=== PATIENT | female | born 1965 | race African-American/Black ===

== ENCOUNTER → 2016-07-27 09:55 | Outpatient (CLI) | payer MEDICARE ==
[2015-02-13 06:54] VITALS: BMI 30.2
[~2016-07-27 09:55] MED LIST: ABILIFY15 MG PO; BENZTROPINE ME0.5 MG PO; BUPROPION XL300 MG PO; DEPAKOTE250 MG PO; DESERYL100 MG PO; IBUPROFEN800 MG; INVEGA1.5 MG PO; KLONOPIN1 MG PO; LAMICTAL200 MG PO; LOTREL 10/20 CA1 CAP PO; NEXIUM40 MG PO; PROZAC20 MG PO; ZYPREXA15 MG PO
== END | disposition home or self-care (01) ==
LOC: D.MRI 09:55
DX: M54.5 Low back pain (principal)

== ENCOUNTER 2016-08-19 11:09 | Emergency (ER) | payer MEDICARE ==
[2015-02-13 06:54] VITALS: BMI 30.2
[2016-08-19 12:16] LABS: BASOPHILS 0.3 % (0.0-2.0); EOSINOPHILS 1.5 % (0-7); HEMATOCRIT 42.2 % (36.0-48.0); IMMATURE GRANULOCYTES 0.3 % (0-5); LYMPHOCYTES 35.6 % (15-50); MCH 29.1 pg (26.0-34.0); MCHC 33.2 g/dL (31.0-37.0); MCV 87.7 fL (80.0-100.0); MEAN PLATELET VOLUME 10.4 fL (7.4-10.4); NEUTROPHILS 54.3 % (40-80); RBC 4.81 10x6/uL (4.00-5.40); RDW 14.7 % (11.5-14.5); WBC 7.3 10x3/uL (4.8-10.8)
[2016-08-19 12:21] LABS: ALBUMIN 3.6 g/dL (3.4-5.0); BILIRUBIN - TOTAL 0.15 mg/dL (0.2-1.3); CALCIUM 9.3 mg/dL (8.5-10.1); CARBON DIOXIDE 33.8 mmol/L (21.0-32.0); CREATININE - SERUM 0.9 mg/dL (0.6-1.3); POTASSIUM - SERUM 3.8 mmol/L (3.5-5.1); PROTEIN - SERUM 7.9 g/dL (6.4-8.2)
[2016-08-19 12:27] LABS: PLATELET COUNT 195 10x3/uL (130-400)
[2016-08-19 14:27] LABS: APPEARANCE CLOUDY (CLEAR); BILIRUBIN NEGATIVE (NEGATIVE); COLOR YELLOW (YELLOW); GLUCOSE NEGATIVE (NEGATIVE); KETONE SMALL mg/dL (NEGATIVE); LEUKOCYTE ESTERASE NEGATIVE (NEGATIVE); NITRITE NEGATIVE (NEGATIVE); PROTEIN NEGATIVE (NEGATIVE); UROBILINOGEN NORMAL (NORMAL)
== END 2016-08-19 15:30 | disposition home or self-care (01) ==
LOC: D.ER 11:09
PROVIDERS: Emergency Medicine
DX: R10.9 Unspecified abdominal pain (principal); F31.9 Bipolar disorder, unspecified; I10 Essential (primary) hypertension; F20.9 Schizophrenia, unspecified; F17.200 Nicotine dependence, unspecified, uncomplicated

== ENCOUNTER → 2017-03-15 16:36 | Outpatient (CLI) | payer MEDICARE ==
[2015-02-13 06:54] VITALS: BMI 30.2
== END | disposition home or self-care (01) ==
LOC: D.MAMMO 14:30
DX: Z12.31 Encounter for screening mammogram for malignant neoplasm of breast (principal)

== ENCOUNTER → 2017-04-06 14:21 | Outpatient (CLI) | payer MEDICARE ==
[2015-02-13 06:54] VITALS: BMI 30.2
[~2017-04-06 14:21] MED LIST changes: +HALDOL5 MG PO; +HYDROCODONE-APA1 TAB PO; +NEURONTIN 400400 MG PO; +ULTRAM50 MG PO; +ZYPREXA20 MG PO
== END | disposition home or self-care (01) ==
LOC: D.MAMMO 10:00
DX: R92.8 Other abnormal and inconclusive findings on diagnostic imaging of breast (principal)

== ENCOUNTER 2017-04-18 11:28 | Day surgery (SDC) | payer MEDICARE ==
[~2017-04-18 11:28] MED LIST changes: -HALDOL5 MG PO; -HYDROCODONE-APA1 TAB PO; -NEURONTIN 400400 MG PO; -ULTRAM50 MG PO; -ZYPREXA20 MG PO
[2017-04-18] MEDS ORDERED: ZYPREXA20 MG PO (12:14)
[2017-04-18] MEDS ORDERED: HALDOL5 MG PO (12:15)
[2017-04-18] MEDS ORDERED: NEURONTIN 400400 MG PO (12:16)
[2017-04-18] MEDS ORDERED: ULTRAM50 MG PO (12:16)
[2017-04-18] MEDS ORDERED: KLONOPIN1 MG PO (12:18)
[2017-04-18 12:25] VITALS: BP 139/96; BMI 41.2
[2017-04-18 13:27] LABS: HEMATOCRIT 41.3 % (36.0-48.0); HEMOGLOBIN 13.6 g/dL (12-16); MCH 28.8 pg (26.0-34.0); MCHC 32.9 g/dL (31.0-37.0); MCV 87.3 fL (80.0-100.0); MEAN PLATELET VOLUME 10.5 fL (7.4-10.4); RBC 4.73 10x6/uL (4.00-5.40); RDW 14.9 % (11.5-14.5); WBC 6.7 10x3/uL (4.8-10.8)
--- NOTE | 2017-04-18 13:55 | NUR ---
PT REC'D TO ROOM VIA STRETCHER. AWAKE, DROWSY.
--- NOTE | 2017-04-18 14:35 | NUR ---
FULL LIQ DIET PROVIDED AND TOLERATED.
--- NOTE | 2017-04-18 15:07 | NUR ---
IV D/C'D CATH INTACT. PT UP TO BR TO VOID. PASSING FLATUS.
--- NOTE | 2017-04-18 15:19 | NUR ---
D/C INSTRUCTIONS EXPLAINED TO PT. VOICED UNDERSTANDING. COPIES OF ALL GIVEN. D/C'D HOME VIA W/C TO PRIVATE CAR.
--- NOTE | 2017-05-05 07:24 | OP ---
PATIENT NAME: AISLINN MATHUR MEDICAL RECORD: [id number] :65 LOCATION:DShirazOPS ADMISSION DATE: SURGEON: ENRIQUETA DONATO DO DATE OF OPERATION: 04/18/2017 INDICATIONS FOR PROCEDURE: Colorectal cancer screening. SCOPE: Olympus video pediatric colonoscope. MEDICATIONS: Propofol 410 mg IV per anesthesia. WITHDRAWAL TIME: 15 minutes. ESTIMATED BLOOD LOSS: Minimal. COMPLICATIONS: None. FINDINGS: Informed consent was given. The patient was made comfortable with the above medication. After reaching an adequate level of sedation by slow IV push, the patient was placed on her left side. A digital rectal examination was performed and was normal. The endoscope was then advanced under direct visualization through the rectum to the terminal ileum. The scope was slowly withdrawn and mucosa was carefully examined. The prep quality was good. In the descending colon, there was a single benign appearing sessile polyp measuring approximately 4-5 mm in diameter, which was removed using hot forceps in 1 piece and completely retrieved. In the sigmoid colon, there were two benign appearing sessile polyps ranging approximately 4-5 mm in diameter in size which were removed using hot forceps in 1 piece and completely retrieved. There were other hyperplastic-appearing polyps, which were ablated. Retroflexion was performed in the rectum with a normal appearing rectal wall. The endoscope was unretroflexed and withdrawn from the patient. The patient tolerated the procedure well and there were no complications. IMPRESSION: Three polyps as described above removed using hot forceps. PLAN AND RECOMMENDATIONS: 1. Discharge home when recovery parameters are met. 2. Follow up biopsy specimen results. 3. Continue current diet. 4. Continue current medications. 5. Recall colonoscopy in 5 years. TRANSINT:[id number] Voice Confirmation ID: [id number] DOCUMENT ID: [id number] ENRIQUETA DONATO DO at 0724 CC: [id number] DICTATION DATE: 04/18/17 1344 ENTERER: 04/18/17 1436 [facility] 04/18/[address] [address]
== END 2017-04-18 15:24 | disposition home or self-care (01) ==
LOC: D.OPS 11:28
PROVIDERS: Anesthesiology
DX: Z12.11 Encounter for screening for malignant neoplasm of colon (principal); K63.5 Polyp of colon; F17.200 Nicotine dependence, unspecified, uncomplicated; I10 Essential (primary) hypertension; J44.9 Chronic obstructive pulmonary disease, unspecified; K21.9 Gastro-esophageal reflux disease without esophagitis; E66.01 Morbid (severe) obesity due to excess calories; Z68.41 Body mass index [BMI] 40.0-44.9, adult

== ENCOUNTER 2017-04-29 10:00 | Outpatient (CLI) | payer MEDICARE ==
[~2017-04-29 10:00] MED LIST changes: +HALDOL5 MG PO; +NEURONTIN 400400 MG PO; +ULTRAM50 MG PO; +ZYPREXA20 MG PO
== END 2017-04-29 23:59 | disposition home or self-care (01) ==
LOC: D.MAMMO 10:00
DX: R92.8 Other abnormal and inconclusive findings on diagnostic imaging of breast (principal)

== ENCOUNTER 2017-06-07 06:08 | Day surgery (SDC) | payer MEDICARE ==
[~2017-06-07] VITALS: Ht 157.5 cm; Wt 101.4 kg
[2017-06-07 07:49] VITALS: BP 155/103; Ht 157.5 cm; Wt 101.4 kg
--- NOTE | 2017-06-07 07:53 | NUR ---
0750 TO CHRIS FOR NEEDLE LOCALIZATION BY ALMA ROSA.
[2017-06-07] MEDS ORDERED: HYDROCODONE-APA1 TAB PO (11:38)
--- NOTE | 2017-06-07 11:57 | NUR ---
ANESTHESIA CONTACTED ABOUT HTN AND ORDRED HYDRALIZINE IN RR. PRE OP BP 180/106
--- NOTE | 2017-06-07 12:20 | NUR ---
PT REC'D TO ROOM VIA STRETCHER. DROWSY, BUT RESPONDS TO VERBAL STIMULI. BP NOTED. PT RECEIVED 20 MG HYDRALAZINE IN PACU. WILL MONITOR.
--- NOTE | 2017-06-07 12:30 | NUR ---
PT ASSISTED UP TO BR. SAT ON COMMODE FOR 15 MINUTES BUT ULTIMATELY WAS ABLE TO VOID. ASSISTED BACK TO BED. FULL LIQ DIET PROVIDED.
--- NOTE | 2017-06-07 13:00 | NUR ---
TOLERATED FULL LIQ DIET. 02 SAT 93. 2L O2 PLACED. WILL MONITOR.
--- NOTE | 2017-06-07 13:15 | NUR ---
PT MORE AWAKE.
--- NOTE | 2017-06-07 13:25 | NUR ---
O2 REMOVED. PT 97% ON RA.
--- NOTE | 2017-06-07 13:45 | NUR ---
IV D/C'D CATH INTACT. PT BACK UP TO BR, VOIDED.
--- NOTE | 2017-06-07 14:00 | NUR ---
D/C INSTRUCTIONS EXPLAINED TO PT AND FAMILY. VOICED UNDERSTANDING. COPIES OF ALL GIVEN, WELL WRITTEN RX FOR [place]CO [address] BOX. D/C'D HOME VIA W/C TO PRIVATE CAR.
--- NOTE | 2017-06-07 15:39 | OP ---
PATIENT NAME: AISLINN MATHUR MEDICAL RECORD: [id number] :65 LOCATION:D.OPS ADMISSION DATE: SURGEON: PRABHJOT BOX MD DATE OF OPERATION: 06/07/2017 PREOPERATIVE DIAGNOSES: 1. Atypical lobular hyperplasia of the left breast. 2. Hypertension. 3. COPD. POSTOPERATIVE DIAGNOSES: 1. Atypical lobular hyperplasia of the left breast. 2. Hypertension. 3. COPD. PROCEDURE: Needle loc, left breast lumpectomy. SURGEON: Prabhjot Box MD REPORT OF PROCEDURE: Preoperatively, the patient had needle localization performed. The patient's left breast and indwelling wire were all prepped and draped in sterile fashion. A skin incision was made on the superolateral aspect of the left breast. Electrocautery was used to dissect through the subcutaneous tissues into the breast cavity. Once in the breast tissue, then we performed a cylindrical dissection of the tissue around the wire until we completely excised everything including the tip of the wire. The specimen was marked appropriately and sent off to radiology. The report was that the clip was in position and the wire was intact. The area was inspected thoroughly and any bleeding that was found was treated with electrocautery. We then reapproximated the subcutaneous tissues with interrupted 3-0 Vicryls and the skin was closed with running subcutaneous 5-0 Monocryl. A 10 mL of 0.25% Marcaine with epinephrine was infused into the surrounding tissues and the wounds were dressed appropriately. COMPLICATIONS: None. CONDITION: Stable. ANESTHESIA: General endotracheal and local. BLOOD LOSS: Minimal. TRANSINT:[id number] Voice Confirmation ID: [id number] DOCUMENT ID: [id number] PRABHJOT BOX MD at 1539 CC: TIFFANI ABDULLAHI MD [id number] DICTATION DATE: 06/07/17 1142 BEER COOLER: 06/07/[address] [facility] 06/07/[address] [address]
== END 2017-06-07 14:00 | disposition home or self-care (01) ==
LOC: D.OPS 06:08 → D.PAN 07:30 → D.OPS 07:30 → D.PAN 08:00 → D.MAMMO 08:00 → D.OPS 14:00
DX: N62 Hypertrophy of breast (principal); I10 Essential (primary) hypertension; J44.9 Chronic obstructive pulmonary disease, unspecified; F17.200 Nicotine dependence, unspecified, uncomplicated; K21.9 Gastro-esophageal reflux disease without esophagitis; Z01.812 Encounter for preprocedural laboratory examination

== ENCOUNTER 2017-10-07 13:46 | Inpatient (IN) | payer MEDICARE ==
[~2017-10-07] VITALS: Ht 157.5 cm; Wt 100.0 kg
--- NOTE | ~2017-10-07 | CN ---
PATIENT NAME:AISLINN MATHUR MEDICAL RECORD: [id number] : 65 LOCATION:D. D.2126 ADMIT DATE: 10/07/17 ACCOUNT: [id number] CONSULTING PHYSICIAN: LESLEY CLARK III, MD REFERRING PHYSICIAN: PRIYANK BURRELL MD DATE OF CONSULTATION: 10/10/2017 FINDINGS: This is a 52-year-old -[place] female who was admitted to the hospital on 10/07/2017. At the time of admission, the patient had undergone mental status change. She was sluggish and lethargic and had difficulty answering questions. The patient has a past history of schizoaffective disorder, depressed phase. She is followed currently at [facility], a local mental health clinic. In the past, she had been followed at [facility]. COMORBIDITIES: Include hypertension, COPD, GERD and tobacco use disorder. The patient has been seen in consultation by both gastroenterology and pulmonology. As of today, she is cleared considerably. She is much more alert as able to answer questions appropriately now. Contributing factors may have been moderate sepsis, mild respiratory failure and possible impact of multiple medications. MEDICATIONS: Listed at the time of her admission included Wellbutrin XL 150 mg daily, [place] 10/325 on a p.r.n. basis, Prozac 20 mg daily, and Zyprexa 20 mg daily, as well as Klonopin 1 mg up to 3 times a day on a p.r.n. basis. MENTAL STATUS EXAM: On exam, the patient is very pleasant. There is some moderate latency in her responses, but generally she answers appropriately. Mood is euthymic. Affect is slightly constricted. Content of thought is negative for psychosis or suicidality. The patient is oriented to person, place and day of the week. Remote and intermediate recall are good. Concentration shows some minor difficulties, but overall good short-term memory. DIAGNOSTIC IMPRESSION: AXIS I: Schizoaffective disorder, transient delirium - resolving. PLAN: The patient evidently has been fairly stable on her current medications, but I would caution against the use or the resumption of Wellbutrin simply because this can provoke manic symptoms. Likewise would recommend reducing the dose of Klonopin to 0.5 mg in view of her other psychoactive medications, which include Neurontin and [place]. Aside from this, follow up with [facility] as soon as possible. TRANSINT:[id number] Voice Confirmation ID: [id number] DOCUMENT ID: [id number] CONSULT REPORT [id number] AISLINN MATHUR III, LESLEY Gray MD at 0810 CC: [id number] DICTATION DATE: 10/10/17 1247 POLICE JUDGE: 10/10/17 1321 ADM IN [facility] [address] [place] [address]
[~2017-10-07 13:46] MED LIST changes: +HYDROCODONE-APA1 TAB PO
[2017-10-07 14:34] LABS: APPEARANCE CLOUDY (CLEAR); COLOR DK YELLOW (YELLOW); SPECIFIC GRAVITY 1.015 (1.005-1.020)
[2017-10-07 14:36] LABS: BACTERIA MODERATE /hpf (NONE SEEN); BILIRUBIN NEGATIVE (NEGATIVE); GLUCOSE NEGATIVE (NEGATIVE); HYALINE CAST 0-5 /lpf (NONE SEEN); KETONE NEGATIVE (NEGATIVE); MUCUS <1+ /lpf (NONE SEEN); NITRITE NEGATIVE (NEGATIVE); PROTEIN TRACE mg/dL (NEGATIVE); RED CELLS - URINE 0-5 /hpf (0-5); UROBILINOGEN NORMAL (NORMAL); WHITE CELLS - URINE 0-5 /hpf (0-5)
[2017-10-07 14:37] LABS: EPITHELIAL CELLS 25-50 /hpf (0-5)
[2017-10-07 14:49] LABS: BASOPHILS 0.1 % (0-2); EOSINOPHILS 0.3 % (0-7); HEMATOCRIT 46.2 % (36.0-48.0); HEMOGLOBIN 14.8 g/dL (12-16); IMMATURE GRANULOCYTES 0.4 % (0-5); LYMPHOCYTES 10.2 % (15-50); MCH 27.9 pg (26.0-34.0); MEAN PLATELET VOLUME 10.4 fL (7.4-10.4); MONOCYTES 9.6 % (2-11); NEUTROPHILS 79.4 % (40-80); RBC 5.31 10x6/uL (4.00-5.40); RDW 16.2 % (11.5-14.5)
[2017-10-07 14:55] LABS: PLATELET COUNT 133 10x3/uL (130-400)
[2017-10-07 15:21] LABS: ALBUMIN 3.5 g/dL (3.4-5.0); ANION GAP 11.5 mmol/L (8-16); BILIRUBIN - TOTAL 0.26 mg/dL (0.2-1.3); CALCIUM 8.9 mg/dL (8.5-10.1); CARBON DIOXIDE 35.6 mmol/L (21.0-32.0); CREATININE - SERUM 1.2 mg/dL (0.6-1.3); POTASSIUM - SERUM 4.1 mmol/L (3.5-5.1); PROTEIN - SERUM 7.3 g/dL (6.4-8.2)
[2017-10-07 15:45] LABS: UDS - AMPHET NEGATIVE QUAL (NEGATIVE); UDS - BARB NEGATIVE QUAL (NEGATIVE); UDS - BENZO NEGATIVE QUAL (NEGATIVE); UDS - COCAINE NEGATIVE QUAL (NEGATIVE); UDS - OPIATE NEGATIVE QUAL (NEGATIVE); UDS - PCP NEGATIVE QUAL (NEGATIVE)
[2017-10-07 15:47] LABS: UDS - THC NEGATIVE QUAL (NEGATIVE)
[2017-10-07 22:02] LABS: APPEARANCE - CSF CLEAR; RBC - CSF 120 cmm (0-0)
[2017-10-07 22:18] LABS: GLUCOSE - CSF 73 MG/DL (40-75)
[2017-10-07 22:19] LABS: PROTEIN - CSF 71 MG/DL (12-60)
[2017-10-07 23:30] VITALS: BP 126/88
[2017-10-07 23:48] VITALS: BP 126/88; BMI 42.1
[2017-10-07 23:48] LABS: HEMATOCRIT 49.6 % (36.0-48.0); HEMOGLOBIN 15.9 g/dL (12-16)
[2017-10-08] VITALS (30 sets, daily range): BP systolic 111–165; BP diastolic 50–116; Ht 157.5 cm; Wt 100.0 kg
[2017-10-08 05:59] LABS: INR 1.06 (0.85-1.17); PROTIME 13.4 SECONDS (11.6-15.0)
[2017-10-08 06:08] LABS: BASOPHILS 0 % (0-2); EOSINOPHILS 0 % (0-7); HEMOGLOBIN 15.4 g/dL (12-16); IMMATURE GRANULOCYTES 0.3 % (0-5); MCH 27.6 pg (26.0-34.0); MCHC 32.8 g/dL (31.0-37.0); MCV 84.2 fL (80.0-100.0); MEAN PLATELET VOLUME 10.6 fL (7.4-10.4); MONOCYTES 13.2 % (2-11); NEUTROPHILS 75.5 % (40-80); PLATELET COUNT 132 10x3/uL (130-400); RBC 5.58 10x6/uL (4.00-5.40); RDW 16.2 % (11.5-14.5); WBC 13.4 10x3/uL (4.8-10.8)
[2017-10-08 06:37] LABS: ALBUMIN 2.9 g/dL (3.4-5.0); ALKALINE PHOSPHATASE 86 U/L (46-116); ALT (SGPT) 22 U/L (10-68); BILIRUBIN - TOTAL 0.24 mg/dL (0.2-1.3); CALCIUM 8.7 mg/dL (8.5-10.1); CARBON DIOXIDE 32.5 mmol/L (21.0-32.0); CHLORIDE - SERUM 102 mmol/L (98-107); POTASSIUM - SERUM 3.6 mmol/L (3.5-5.1); PROTEIN - SERUM 6.6 g/dL (6.4-8.2); SODIUM 143 mmol/L (136-145); UREA NITROGEN 14 mg/dL (7-18)
[2017-10-08 06:39] LABS: CALC OSMOLALITY 288 mosm/kg (275-300); CREATININE - SERUM 0.7 mg/dL (0.6-1.3); GLUCOSE 159 mg/dL (74-106); eGFR NON AFRICAN AMERICAN > 90 mL/min (90-120)
[2017-10-08 15:54] LABS: HEMATOCRIT 44.7 % (36.0-48.0); HEMOGLOBIN 14.7 g/dL (12-16)
[2017-10-08 23:36] LABS: HEMATOCRIT 44.1 % (36.0-48.0); HEMOGLOBIN 14.4 g/dL (12-16)
[2017-10-09] VITALS (7 sets, daily range): BP systolic 119–192; BP diastolic 64–121
[2017-10-09 05:53] LABS: BASOPHILS 0.1 % (0-2); EOSINOPHILS 0 % (0-7); HEMATOCRIT 40.8 % (36.0-48.0); HEMOGLOBIN 13.2 g/dL (12-16); IMMATURE GRANULOCYTES 0.3 % (0-5); LYMPHOCYTES 11.7 % (15-50); MCH 27.1 pg (26.0-34.0); MCHC 32.4 g/dL (31.0-37.0); MCV 83.8 fL (80.0-100.0); MONOCYTES 13.4 % (2-11); NEUTROPHILS 74.5 % (40-80); PLATELET COUNT 112 10x3/uL (130-400); RBC 4.87 10x6/uL (4.00-5.40); WBC 16.4 10x3/uL (4.8-10.8)
[2017-10-09 06:17] LABS: ALBUMIN 2.5 g/dL (3.4-5.0); ALKALINE PHOSPHATASE 72 U/L (46-116); ALT (SGPT) 17 U/L (10-68); CALCIUM 8.7 mg/dL (8.5-10.1); CARBON DIOXIDE 35.6 mmol/L (21.0-32.0); CHLORIDE - SERUM 99 mmol/L (98-107); CREATININE - SERUM 0.6 mg/dL (0.6-1.3); GLUCOSE 141 mg/dL (74-106); MAGNESIUM - SERUM 1.7 mg/dL (1.8-2.4); PHOSPHOROUS 2.6 mg/dL (2.5-4.9); PROTEIN - SERUM 6.1 g/dL (6.4-8.2); SODIUM 140 mmol/L (136-145); eGFR NON AFRICAN AMERICAN > 90 mL/min (90-120)
[2017-10-09 06:22] LABS: CALC OSMOLALITY 278 mosm/kg (275-300); UREA NITROGEN 8 mg/dL (7-18)
[2017-10-09 06:28] LABS: POTASSIUM - SERUM 2.8 mmol/L (3.5-5.1)
[2017-10-09 11:24] LABS: HEMATOCRIT 40.5 % (36.0-48.0); HEMOGLOBIN 13.4 g/dL (12-16)
[2017-10-09 16:57] LABS: HEMATOCRIT 40.3 % (36.0-48.0); HEMOGLOBIN 13.1 g/dL (12-16)
[2017-10-09 17:14] LABS: POTASSIUM - SERUM 3.3 mmol/L (3.5-5.1)
[2017-10-09 23:18] LABS: HEMATOCRIT 38.6 % (36.0-48.0); HEMOGLOBIN 12.5 g/dL (12-16)
[2017-10-10 04:00] VITALS: BP 151/88
[2017-10-10 04:41] LABS: BASOPHILS 0.1 % (0-2); EOSINOPHILS 0.2 % (0-7); HEMATOCRIT 38.2 % (36.0-48.0); HEMOGLOBIN 12.4 g/dL (12-16); IMMATURE GRANULOCYTES 1.1 % (0-5); LYMPHOCYTES 15.3 % (15-50); MCH 27.3 pg (26.0-34.0); MCHC 32.5 g/dL (31.0-37.0); MEAN PLATELET VOLUME 10.7 fL (7.4-10.4); MONOCYTES 11.7 % (2-11); NEUTROPHILS 71.6 % (40-80); PLATELET COUNT 110 10x3/uL (130-400); RBC 4.55 10x6/uL (4.00-5.40); RDW 16.2 % (11.5-14.5); WBC 17.2 10x3/uL (4.8-10.8)
[2017-10-10 05:01] LABS: ALBUMIN 2.4 g/dL (3.4-5.0); ALKALINE PHOSPHATASE 67 U/L (46-116); ALT (SGPT) 14 U/L (10-68); CALCIUM 8.2 mg/dL (8.5-10.1); CREATININE - SERUM 0.6 mg/dL (0.6-1.3); GLUCOSE 106 mg/dL (74-106); PROTEIN - SERUM 5.9 g/dL (6.4-8.2); UREA NITROGEN 6 mg/dL (7-18); eGFR NON AFRICAN AMERICAN > 90 mL/min (90-120)
[2017-10-10 05:18] LABS: CALC OSMOLALITY 276 mosm/kg (275-300); CHLORIDE - SERUM 100 mmol/L (98-107); SODIUM 140 mmol/L (136-145)
[2017-10-10 09:42] VITALS: BP 148/86
[2017-10-10 12:39] VITALS: BP 125/68
[2017-10-10 16:41] VITALS: BP 127/71
[2017-10-10 19:00] VITALS: BP 152/58
[2017-10-11 04:00] VITALS: BP 154/78
[2017-10-11 06:55] LABS: BASOPHILS 0.1 % (0-2); EOSINOPHILS 0.4 % (0-7); HEMATOCRIT 35.9 % (36.0-48.0); HEMOGLOBIN 11.5 g/dL (12-16); IMMATURE GRANULOCYTES 1.2 % (0-5); LYMPHOCYTES 13.8 % (15-50); MCH 27.1 pg (26.0-34.0); MCV 84.5 fL (80.0-100.0); MEAN PLATELET VOLUME 10.2 fL (7.4-10.4); MONOCYTES 9.2 % (2-11); NEUTROPHILS 75.3 % (40-80); PLATELET COUNT 112 10x3/uL (130-400); RBC 4.25 10x6/uL (4.00-5.40); RDW 15.8 % (11.5-14.5); WBC 13.6 10x3/uL (4.8-10.8)
[2017-10-11 07:16] LABS: ALBUMIN 2.4 g/dL (3.4-5.0); ALKALINE PHOSPHATASE 54 U/L (46-116); BILIRUBIN - TOTAL 0.16 mg/dL (0.2-1.3); CALC OSMOLALITY 282 mosm/kg (275-300); CALCIUM 8.1 mg/dL (8.5-10.1); CARBON DIOXIDE 34.3 mmol/L (21.0-32.0); CHLORIDE - SERUM 100 mmol/L (98-107); CREATININE - SERUM 0.6 mg/dL (0.6-1.3); GLUCOSE 92 mg/dL (74-106); PROTEIN - SERUM 5.4 g/dL (6.4-8.2); SODIUM 143 mmol/L (136-145); UREA NITROGEN 6 mg/dL (7-18); eGFR NON AFRICAN AMERICAN > 90 mL/min (90-120)
[2017-10-11 07:29] LABS: ALT (SGPT) 19 U/L (10-68)
[2017-10-11 08:35] VITALS: BP 154/84
[2017-10-11 11:35] VITALS: BP 145/81
[2017-10-11 15:09] VITALS: BP 145/87
[2017-10-11 20:00] VITALS: BP 139/79
[2017-10-12] VITALS: BP 155/85
[2017-10-12 04:00] VITALS: BP 144/80
[2017-10-12 05:15] LABS: BASOPHILS 0.4 % (0-2); EOSINOPHILS 0.5 % (0-7); HEMOGLOBIN 11.3 g/dL (12-16); IMMATURE GRANULOCYTES 1.6 % (0-5); LYMPHOCYTES 18.9 % (15-50); MCHC 33.2 g/dL (31.0-37.0); MCV 84.4 fL (80.0-100.0); MEAN PLATELET VOLUME 10.1 fL (7.4-10.4); MONOCYTES 9.4 % (2-11); NEUTROPHILS 69.2 % (40-80); PLATELET COUNT 128 10x3/uL (130-400); RBC 4.03 10x6/uL (4.00-5.40); RDW 15.7 % (11.5-14.5); WBC 12.7 10x3/uL (4.8-10.8)
[2017-10-12 05:41] LABS: ALBUMIN 2.5 g/dL (3.4-5.0); ALKALINE PHOSPHATASE 56 U/L (46-116); ALT (SGPT) 22 U/L (10-68); CALC OSMOLALITY 280 mosm/kg (275-300); CALCIUM 8.4 mg/dL (8.5-10.1); CHLORIDE - SERUM 102 mmol/L (98-107); CREATININE - SERUM 0.5 mg/dL (0.6-1.3); GLUCOSE 101 mg/dL (74-106); SODIUM 142 mmol/L (136-145); UREA NITROGEN 7 mg/dL (7-18); eGFR NON AFRICAN AMERICAN > 90 mL/min (90-120)
[2017-10-12 05:44] LABS: POTASSIUM - SERUM 2.7 mmol/L (3.5-5.1)
[2017-10-12 08:00] VITALS: BP 142/97
[2017-10-12 11:39] VITALS: BP 140/79
[2017-10-12 15:52] VITALS: BP 154/83
[2017-10-12 17:46] LABS: ERYTHROCYTE SEDIMENTATION RATE 34 mm/hr (0-30)
[2017-10-12 19:00] VITALS: BP 154/86
[2017-10-13 04:00] VITALS: BP 162/92
[2017-10-13 06:57] LABS: BASOPHILS 0.2 % (0-2); EOSINOPHILS 0.1 % (0-7); HEMATOCRIT 32.9 % (36.0-48.0); HEMOGLOBIN 10.6 g/dL (12-16); IMMATURE GRANULOCYTES 4.1 % (0-5); LYMPHOCYTES 17.4 % (15-50); MCH 27.1 pg (26.0-34.0); MCHC 32.2 g/dL (31.0-37.0); MCV 84.1 fL (80.0-100.0); MEAN PLATELET VOLUME 10.3 fL (7.4-10.4); NEUTROPHILS 68.2 % (40-80); RBC 3.91 10x6/uL (4.00-5.40); RDW 15.8 % (11.5-14.5); WBC 12.6 10x3/uL (4.8-10.8)
[2017-10-13 06:58] LABS: PLATELET COUNT 157 10x3/uL (130-400)
[2017-10-13 07:12] LABS: ALBUMIN 2.3 g/dL (3.4-5.0); ALKALINE PHOSPHATASE 52 U/L (46-116); ALT (SGPT) 25 U/L (10-68); BILIRUBIN - TOTAL 0.13 mg/dL (0.2-1.3); CALC OSMOLALITY 283 mosm/kg (275-300); CALCIUM 8.3 mg/dL (8.5-10.1); CARBON DIOXIDE 33.8 mmol/L (21.0-32.0); CHLORIDE - SERUM 103 mmol/L (98-107); CREATININE - SERUM 0.4 mg/dL (0.6-1.3); GLUCOSE 88 mg/dL (74-106); MAGNESIUM - SERUM 1.7 mg/dL (1.8-2.4); PHOSPHOROUS 3.8 mg/dL (2.5-4.9); POTASSIUM - SERUM 3.2 mmol/L (3.5-5.1); PROTEIN - SERUM 5.3 g/dL (6.4-8.2); SODIUM 144 mmol/L (136-145); UREA NITROGEN 6 mg/dL (7-18); eGFR NON AFRICAN AMERICAN > 90 mL/min (90-120)
[2017-10-13 09:44] VITALS: BP 150/101
[2017-10-13 13:07] VITALS: BP 158/80
[2017-10-13 16:20] VITALS: BP 172/97
[2017-10-13 20:00] VITALS: BP 159/106
[2017-10-14] VITALS: BP 167/103
[2017-10-14 04:00] VITALS: BP 168/91
[2017-10-14 07:52] VITALS: BP 175/99
[2017-10-14 11:28] VITALS: BP 199/102
[2017-10-14 11:29] LABS: BASOPHILS 0.2 % (0-2); EOSINOPHILS 0 % (0-7); HEMATOCRIT 36.1 % (36.0-48.0); HEMOGLOBIN 11.8 g/dL (12-16); IMMATURE GRANULOCYTES 5.2 % (0-5); MCH 27.2 pg (26.0-34.0); MCHC 32.7 g/dL (31.0-37.0); MCV 83.2 fL (80.0-100.0); MEAN PLATELET VOLUME 10.6 fL (7.4-10.4); MONOCYTES 4.9 % (2-11); NEUTROPHILS 78.7 % (40-80); PLATELET COUNT 221 10x3/uL (130-400); RBC 4.34 10x6/uL (4.00-5.40); RDW 15.5 % (11.5-14.5); WBC 18.3 10x3/uL (4.8-10.8)
[2017-10-14 11:43] LABS: ALBUMIN 2.6 g/dL (3.4-5.0); ALKALINE PHOSPHATASE 55 U/L (46-116); ALT (SGPT) 31 U/L (10-68); BILIRUBIN - TOTAL 0.15 mg/dL (0.2-1.3); CALCIUM 8.7 mg/dL (8.5-10.1); CARBON DIOXIDE 35.3 mmol/L (21.0-32.0); CHLORIDE - SERUM 103 mmol/L (98-107); POTASSIUM - SERUM 3.4 mmol/L (3.5-5.1); PROTEIN - SERUM 6.1 g/dL (6.4-8.2); SODIUM 143 mmol/L (136-145)
[2017-10-14 11:45] LABS: CALC OSMOLALITY 286 mosm/kg (275-300); CREATININE - SERUM 0.6 mg/dL (0.6-1.3); GLUCOSE 153 mg/dL (74-106); UREA NITROGEN 11 mg/dL (7-18); eGFR NON AFRICAN AMERICAN > 90 mL/min (90-120)
[2017-10-14 15:24] VITALS: BP 164/100
[2017-10-14 19:34] VITALS: BP 150/91
[2017-10-15] VITALS: BP 168/95
[2017-10-15 05:25] VITALS: BP 168/94
[2017-10-15 05:41] LABS: BASOPHILS 0.1 % (0-2); EOSINOPHILS 0 % (0-7); HEMATOCRIT 35.4 % (36.0-48.0); HEMOGLOBIN 11.3 g/dL (12-16); LYMPHOCYTES 10.4 % (15-50); MCH 26.8 pg (26.0-34.0); MCHC 31.9 g/dL (31.0-37.0); MCV 84.1 fL (80.0-100.0); MEAN PLATELET VOLUME 10.4 fL (7.4-10.4); MONOCYTES 5.2 % (2-11); NEUTROPHILS 79.3 % (40-80); PLATELET COUNT 241 10x3/uL (130-400); RBC 4.21 10x6/uL (4.00-5.40); RDW 15.9 % (11.5-14.5); WBC 16.1 10x3/uL (4.8-10.8)
[2017-10-15 05:55] LABS: CALC OSMOLALITY 287 mosm/kg (275-300); CALCIUM 8.9 mg/dL (8.5-10.1); CARBON DIOXIDE 34.3 mmol/L (21.0-32.0); CHLORIDE - SERUM 103 mmol/L (98-107); CREATININE - SERUM 0.6 mg/dL (0.6-1.3); GLUCOSE 130 mg/dL (74-106); POTASSIUM - SERUM 3.5 mmol/L (3.5-5.1); SODIUM 143 mmol/L (136-145); UREA NITROGEN 14 mg/dL (7-18); eGFR NON AFRICAN AMERICAN > 90 mL/min (90-120)
[2017-10-15 09:14] VITALS: BP 151/97
[2017-10-15 12:23] VITALS: BP 146/96
[2017-10-15 16:39] VITALS: BP 148/70
[2017-10-16 05:48] VITALS: BP 158/94
[2017-10-16 05:52] LABS: BASOPHILS 0.1 % (0-2); EOSINOPHILS 0 % (0-7); HEMATOCRIT 34.3 % (36.0-48.0); HEMOGLOBIN 10.9 g/dL (12-16); IMMATURE GRANULOCYTES 4.7 % (0-5); MCH 26.7 pg (26.0-34.0); MCHC 31.8 g/dL (31.0-37.0); MCV 84.1 fL (80.0-100.0); MEAN PLATELET VOLUME 10.4 fL (7.4-10.4); MONOCYTES 7.8 % (2-11); NEUTROPHILS 65.4 % (40-80); PLATELET COUNT 254 10x3/uL (130-400); RBC 4.08 10x6/uL (4.00-5.40); RDW 15.5 % (11.5-14.5); WBC 15.9 10x3/uL (4.8-10.8)
[2017-10-16 06:11] LABS: CALC OSMOLALITY 284 mosm/kg (275-300); CALCIUM 8.4 mg/dL (8.5-10.1); CARBON DIOXIDE 34.3 mmol/L (21.0-32.0); CHLORIDE - SERUM 103 mmol/L (98-107); CREATININE - SERUM 0.5 mg/dL (0.6-1.3); GLUCOSE 99 mg/dL (74-106); SODIUM 143 mmol/L (136-145); UREA NITROGEN 12 mg/dL (7-18); eGFR NON AFRICAN AMERICAN > 90 mL/min (90-120)
[2017-10-16 08:02] VITALS: BP 139/97
[2017-10-16 11:16] VITALS: BP 159/95
[2017-10-16 15:01] VITALS: BP 155/94
[2017-10-16 21:57] VITALS: BP 149/82
[2017-10-17 05:54] VITALS: BP 144/42
[2017-10-17 06:19] LABS: BASOPHILS 0.1 % (0-2); EOSINOPHILS 0.1 % (0-7); HEMATOCRIT 34.2 % (36.0-48.0); IMMATURE GRANULOCYTES 1.9 % (0-5); LYMPHOCYTES 22.2 % (15-50); MCHC 32.2 g/dL (31.0-37.0); MONOCYTES 6.3 % (2-11); NEUTROPHILS 69.4 % (40-80); PLATELET COUNT 251 10x3/uL (130-400); RBC 4.07 10x6/uL (4.00-5.40); RDW 15.7 % (11.5-14.5); WBC 14.4 10x3/uL (4.8-10.8)
[2017-10-17 06:56] LABS: CALC OSMOLALITY 285 mosm/kg (275-300); CALCIUM 8.5 mg/dL (8.5-10.1); CARBON DIOXIDE 34.4 mmol/L (21.0-32.0); CHLORIDE - SERUM 102 mmol/L (98-107); CREATININE - SERUM 0.6 mg/dL (0.6-1.3); GLUCOSE 93 mg/dL (74-106); MAGNESIUM - SERUM 1.9 mg/dL (1.8-2.4); SODIUM 144 mmol/L (136-145); UREA NITROGEN 11 mg/dL (7-18); eGFR NON AFRICAN AMERICAN > 90 mL/min (90-120)
[2017-10-17 06:57] LABS: POTASSIUM - SERUM 3.2 mmol/L (3.5-5.1)
[2017-10-17 09:18] VITALS: BP 167/99
[2017-10-17 11:24] VITALS: BP 137/91
[2017-10-17 15:17] VITALS: BP 140/80
[2017-10-17 20:49] VITALS: BP 117/76
[2017-10-18 01:03] VITALS: BP 160/103
[2017-10-18 05:01] VITALS: BP 151/90
[2017-10-18 05:33] LABS: BASOPHILS 0.1 % (0-2); EOSINOPHILS 0.3 % (0-7); HEMATOCRIT 35.8 % (36.0-48.0); HEMOGLOBIN 11.5 g/dL (12-16); IMMATURE GRANULOCYTES 0.9 % (0-5); MCH 26.9 pg (26.0-34.0); MCHC 32.1 g/dL (31.0-37.0); MCV 83.8 fL (80.0-100.0); MEAN PLATELET VOLUME 9.9 fL (7.4-10.4); MONOCYTES 4.9 % (2-11); NEUTROPHILS 72.8 % (40-80); PLATELET COUNT 238 10x3/uL (130-400); RBC 4.27 10x6/uL (4.00-5.40); RDW 15.6 % (11.5-14.5); WBC 15.1 10x3/uL (4.8-10.8)
[2017-10-18 05:49] LABS: CALC OSMOLALITY 282 mosm/kg (275-300); CALCIUM 8.6 mg/dL (8.5-10.1); CARBON DIOXIDE 30.6 mmol/L (21.0-32.0); CHLORIDE - SERUM 101 mmol/L (98-107); CREATININE - SERUM 0.6 mg/dL (0.6-1.3); GLUCOSE 103 mg/dL (74-106); SODIUM 142 mmol/L (136-145); UREA NITROGEN 12 mg/dL (7-18); eGFR NON AFRICAN AMERICAN > 90 mL/min (90-120)
[2017-10-18 05:56] LABS: POTASSIUM - SERUM 3.1 mmol/L (3.5-5.1)
[2017-10-18 08:19] LABS: VIRAL - RESULT No virus isolated. (())
[2017-10-18 10:29] VITALS: BP 140/70
[2017-10-18] MEDS ORDERED: FLAGYL500 MG PO (10:40)
[2017-10-18] MEDS ORDERED: PREDNISONE10 MG PO (10:42)
[2017-10-18] MEDS ORDERED: AZULFIDINE500 MG PO (11:00)
[2017-10-18 11:42] VITALS: BP 144/94
[2017-10-18 15:46] VITALS: BP 169/99
== END 2017-10-18 18:46 | disposition home or self-care (01) | DRG 871 ==
LOC: D.ER 13:46 → D.M2 17:02 → D.EDHOLD 17:02 → D.ICU 17:02 → D.M2 10-08 19:10
PROVIDERS: Emergency Medicine; Family Medicine; Internal Medicine Gastroenterology; Internal Medicine Nephrology; Internal Medicine Pulmonary Disease
PROC: 009U3ZZ Drainage of Spinal Canal, Percutaneous Approach (ICD-10-PCS; principal; 2017-10-07)
PROC: B01B1ZZ Fluoroscopy of Spinal Cord using Low Osmolar Contrast (ICD-10-PCS; 2017-10-07)
PROC: 0DBL8ZX Excision of Transverse Colon, Via Natural or Artificial Opening Endoscopic, Diagnostic (ICD-10-PCS; 2017-10-12)
DX: A41.9 Sepsis, unspecified organism (principal); G93.41 Metabolic encephalopathy; J96.22 Acute and chronic respiratory failure with hypercapnia; J96.21 Acute and chronic respiratory failure with hypoxia; K92.2 Gastrointestinal hemorrhage, unspecified; A09 Infectious gastroenteritis and colitis, unspecified; F05 Delirium due to known physiological condition; F17.203 Nicotine dependence unspecified, with withdrawal; N39.0 Urinary tract infection, site not specified; D62 Acute posthemorrhagic anemia; K51.90 Ulcerative colitis, unspecified, without complications; Z68.41 Body mass index [BMI] 40.0-44.9, adult; F25.9 Schizoaffective disorder, unspecified; K21.9 Gastro-esophageal reflux disease without esophagitis; J44.9 Chronic obstructive pulmonary disease, unspecified; I10 Essential (primary) hypertension; R19.4 Change in bowel habit; E87.6 Hypokalemia; J30.9 Allergic rhinitis, unspecified; K63.5 Polyp of colon; E66.01 Morbid (severe) obesity due to excess calories

== ENCOUNTER 2017-10-18 19:27 | Inpatient (IN) | payer MEDICARE ==
[~2017-10-18] VITALS: Ht 157.5 cm; Wt 96.5 kg
[~2017-10-18 19:27] MED LIST changes: +AZULFIDINE500 MG PO; +FLAGYL500 MG PO; +PREDNISONE10 MG PO
[2017-10-18 20:28] LABS: BASOPHILS 0.1 % (0-2); EOSINOPHILS 0 % (0-7); HEMATOCRIT 37.4 % (36.0-48.0); HEMOGLOBIN 11.9 g/dL (12-16); IMMATURE GRANULOCYTES 0.6 % (0-5); LYMPHOCYTES 6.8 % (15-50); MCH 26.9 pg (26.0-34.0); MCHC 31.8 g/dL (31.0-37.0); MCV 84.6 fL (80.0-100.0); MEAN PLATELET VOLUME 9.7 fL (7.4-10.4); MONOCYTES 3.2 % (2-11); NEUTROPHILS 89.3 % (40-80); PLATELET COUNT 200 10x3/uL (130-400); RBC 4.42 10x6/uL (4.00-5.40); RDW 15.6 % (11.5-14.5); WBC 14.5 10x3/uL (4.8-10.8)
[2017-10-18 21:01] LABS: APTT 27.2 SECONDS (22.8-39.4); INR 1.17 (0.85-1.17); PROTIME 14.5 SECONDS (11.6-15.0)
[2017-10-18 21:16] LABS: D-DIMER-QUANTITATIVE 11.71 ug/mLFEU (0.20-0.54)
[2017-10-18 21:22] LABS: ALBUMIN 2.8 g/dL (3.4-5.0); ALKALINE PHOSPHATASE 50 U/L (46-116); ALT (SGPT) 26 U/L (10-68); CALCIUM 8.5 mg/dL (8.5-10.1); CARBON DIOXIDE 28.9 mmol/L (21.0-32.0); CHLORIDE - SERUM 103 mmol/L (98-107); CREATININE - SERUM 0.5 mg/dL (0.6-1.3); PROTEIN - SERUM 6.2 g/dL (6.4-8.2); SODIUM 141 mmol/L (136-145); UREA NITROGEN 10 mg/dL (7-18); eGFR NON AFRICAN AMERICAN > 90 mL/min (90-120)
[2017-10-18 21:23] LABS: CALC OSMOLALITY 283 mosm/kg (275-300); GLUCOSE 179 mg/dL (74-106)
[2017-10-18 21:29] LABS: CKMB 1.1 U/L (0.0-3.6); CREATINE KINASE 65 UL (21-215)
[2017-10-18 21:31] LABS: TROPONIN-I 0.231 ng/mL (0.000-0.060)
[2017-10-19] VITALS (8 sets, daily range): BP systolic 139–152; BP diastolic 89–109; BMI 39.0
[2017-10-19 03:37] LABS: BASOPHILS 0.1 % (0-2); EOSINOPHILS 0.1 % (0-7); HEMATOCRIT 35.6 % (36.0-48.0); HEMOGLOBIN 11.5 g/dL (12-16); IMMATURE GRANULOCYTES 0.8 % (0-5); LYMPHOCYTES 15.8 % (15-50); MCH 27.1 pg (26.0-34.0); MCHC 32.3 g/dL (31.0-37.0); MCV 83.8 fL (80.0-100.0); MEAN PLATELET VOLUME 9.9 fL (7.4-10.4); MONOCYTES 5.3 % (2-11); NEUTROPHILS 77.9 % (40-80); PLATELET COUNT 234 10x3/uL (130-400); RBC 4.25 10x6/uL (4.00-5.40); RDW 15.6 % (11.5-14.5); WBC 14.6 10x3/uL (4.8-10.8)
[2017-10-19 04:20] LABS: ALBUMIN 2.6 g/dL (3.4-5.0); ALKALINE PHOSPHATASE 149 U/L (46-116); ALT (SGPT) 29 U/L (10-68); BILIRUBIN - TOTAL 0.18 mg/dL (0.2-1.3); CALCIUM 8.6 mg/dL (8.5-10.1); CARBON DIOXIDE 31.6 mmol/L (21.0-32.0); CHLORIDE - SERUM 104 mmol/L (98-107); CREATININE - SERUM 0.6 mg/dL (0.6-1.3); POTASSIUM - SERUM 3.5 mmol/L (3.5-5.1); PROTEIN - SERUM 6.3 g/dL (6.4-8.2); SODIUM 144 mmol/L (136-145); UREA NITROGEN 9 mg/dL (7-18); eGFR NON AFRICAN AMERICAN > 90 mL/min (90-120)
[2017-10-19 04:31] LABS: CALC OSMOLALITY 286 mosm/kg (275-300); GLUCOSE 110 mg/dL (74-106); TROPONIN-I 1.412 ng/mL (0.000-0.060)
[2017-10-19 20:56] LABS: APPEARANCE CLEAR (CLEAR); BILIRUBIN NEGATIVE (NEGATIVE); COLOR YELLOW (YELLOW); GLUCOSE NEGATIVE (NEGATIVE); KETONE NEGATIVE (NEGATIVE); NITRITE NEGATIVE (NEGATIVE); PROTEIN NEGATIVE (NEGATIVE); SPECIFIC GRAVITY 1.025 (1.005-1.020); UROBILINOGEN NORMAL (NORMAL)
[2017-10-19 20:57] LABS: EPITHELIAL CELLS 0-5 /hpf (0-5); RED CELLS - URINE 0-5 /hpf (0-5); WHITE CELLS - URINE 0-5 /hpf (0-5)
[2017-10-19 20:58] LABS: BACTERIA MODERATE /hpf (NONE SEEN); MUCUS >1+ /lpf (NONE SEEN)
[2017-10-20] VITALS (24 sets, daily range): BP systolic 130–159; BP diastolic 83–100
[2017-10-20 06:53] LABS: BASOPHILS 0.1 % (0-2); EOSINOPHILS 0.8 % (0-7); HEMATOCRIT 35.2 % (36.0-48.0); HEMOGLOBIN 11.3 g/dL (12-16); IMMATURE GRANULOCYTES 0.5 % (0-5); MCHC 32.1 g/dL (31.0-37.0); MCV 84.2 fL (80.0-100.0); MEAN PLATELET VOLUME 9.7 fL (7.4-10.4); NEUTROPHILS 62.6 % (40-80); PLATELET COUNT 245 10x3/uL (130-400); RBC 4.18 10x6/uL (4.00-5.40); RDW 15.6 % (11.5-14.5)
[2017-10-20 07:03] LABS: WBC 10.6 10x3/uL (4.8-10.8)
[2017-10-20 07:51] LABS: ALBUMIN 2.5 g/dL (3.4-5.0); ALKALINE PHOSPHATASE 116 U/L (46-116); ALT (SGPT) 28 U/L (10-68); CALCIUM 8.8 mg/dL (8.5-10.1); CARBON DIOXIDE 33.6 mmol/L (21.0-32.0); CHLORIDE - SERUM 101 mmol/L (98-107); CREATININE - SERUM 0.7 mg/dL (0.6-1.3); GLUCOSE 104 mg/dL (74-106); POTASSIUM - SERUM 3.6 mmol/L (3.5-5.1); PROTEIN - SERUM 6.2 g/dL (6.4-8.2); SODIUM 142 mmol/L (136-145); eGFR NON AFRICAN AMERICAN > 90 mL/min (90-120)
[2017-10-20 07:52] LABS: CALC OSMOLALITY 282 mosm/kg (275-300); UREA NITROGEN 12 mg/dL (7-18)
[2017-10-20 07:53] LABS: TROPONIN-I 0.326 ng/mL (0.000-0.060)
[2017-10-21] VITALS (15 sets, daily range): BP systolic 135–160; BP diastolic 80–113; Ht 157.5 cm; Wt 96.5 kg
[2017-10-21 05:36] LABS: BASOPHILS 0.1 % (0-2); EOSINOPHILS 0.3 % (0-7); HEMATOCRIT 34.5 % (36.0-48.0); HEMOGLOBIN 11.2 g/dL (12-16); IMMATURE GRANULOCYTES 0.5 % (0-5); LYMPHOCYTES 27.4 % (15-50); MCH 27.1 pg (26.0-34.0); MCHC 32.5 g/dL (31.0-37.0); MCV 83.3 fL (80.0-100.0); MEAN PLATELET VOLUME 10.8 fL (7.4-10.4); MONOCYTES 8.2 % (2-11); NEUTROPHILS 63.5 % (40-80); PLATELET COUNT 284 10x3/uL (130-400); RBC 4.14 10x6/uL (4.00-5.40); RDW 15.4 % (11.5-14.5); WBC 11.9 10x3/uL (4.8-10.8)
[2017-10-21 07:19] LABS: ALBUMIN 2.6 g/dL (3.4-5.0); ALKALINE PHOSPHATASE 97 U/L (46-116); ALT (SGPT) 27 U/L (10-68); CALC OSMOLALITY 279 mosm/kg (275-300); CALCIUM 8.8 mg/dL (8.5-10.1); CARBON DIOXIDE 31.8 mmol/L (21.0-32.0); CHLORIDE - SERUM 100 mmol/L (98-107); CREATININE - SERUM 0.6 mg/dL (0.6-1.3); GLUCOSE 101 mg/dL (74-106); POTASSIUM - SERUM 3.5 mmol/L (3.5-5.1); PROTEIN - SERUM 5.8 g/dL (6.4-8.2); SODIUM 141 mmol/L (136-145); UREA NITROGEN 9 mg/dL (7-18); eGFR NON AFRICAN AMERICAN > 90 mL/min (90-120)
[2017-10-21 08:14] LABS: CA125 23.7 U/mL (0.0-38.1); CEA 3.5 ng/mL (0.0-4.7)
[2017-10-21 09:18] LABS: FOLATE (FOLIC ACID) - SERUM 13.3 ng/mL (>3.0)
[2017-10-21 11:18] LABS: CA 27-29 21.5 U/mL (0.0-38.6)
[2017-10-22] VITALS: BP 135/88
[2017-10-22 03:03] LABS: BASOPHILS 0.1 % (0-2); EOSINOPHILS 0.3 % (0-7); HEMATOCRIT 33.5 % (36.0-48.0); IMMATURE GRANULOCYTES 0.4 % (0-5); LYMPHOCYTES 23.5 % (15-50); MCH 27.1 pg (26.0-34.0); MCHC 32.8 g/dL (31.0-37.0); MCV 82.5 fL (80.0-100.0); MEAN PLATELET VOLUME 10.1 fL (7.4-10.4); MONOCYTES 9.6 % (2-11); NEUTROPHILS 66.1 % (40-80); PLATELET COUNT 282 10x3/uL (130-400); RBC 4.06 10x6/uL (4.00-5.40); RDW 15.1 % (11.5-14.5); WBC 10.4 10x3/uL (4.8-10.8)
[2017-10-22 03:45] LABS: ALBUMIN 2.6 g/dL (3.4-5.0); ALKALINE PHOSPHATASE 78 U/L (46-116); ALT (SGPT) 26 U/L (10-68); CALC OSMOLALITY 276 mosm/kg (275-300); CARBON DIOXIDE 33.1 mmol/L (21.0-32.0); CHLORIDE - SERUM 102 mmol/L (98-107); CREATININE - SERUM 0.6 mg/dL (0.6-1.3); GLUCOSE 99 mg/dL (74-106); PROTEIN - SERUM 6.3 g/dL (6.4-8.2); SODIUM 140 mmol/L (136-145); UREA NITROGEN 7 mg/dL (7-18); eGFR NON AFRICAN AMERICAN > 90 mL/min (90-120)
[2017-10-22 04:00] VITALS: BP 144/89
[2017-10-22 08:54] VITALS: BP 157/98
[2017-10-22 11:09] LABS: MAGNESIUM - SERUM 1.8 mg/dL (1.8-2.4); PHOSPHOROUS 4.3 mg/dL (2.5-4.9)
[2017-10-22 11:50] VITALS: BP 157/98
[2017-10-22 15:57] VITALS: BP 146/86
[2017-10-22 23:18] VITALS: BP 140/79
[2017-10-23 03:20] LABS: BASOPHILS 0.1 % (0-2); EOSINOPHILS 0.2 % (0-7); HEMATOCRIT 35.7 % (36.0-48.0); HEMOGLOBIN 11.6 g/dL (12-16); IMMATURE GRANULOCYTES 0.4 % (0-5); LYMPHOCYTES 28.5 % (15-50); MCH 27.2 pg (26.0-34.0); MCHC 32.5 g/dL (31.0-37.0); MCV 83.6 fL (80.0-100.0); MEAN PLATELET VOLUME 10.2 fL (7.4-10.4); MONOCYTES 8.7 % (2-11); NEUTROPHILS 62.1 % (40-80); RBC 4.27 10x6/uL (4.00-5.40); RDW 15.4 % (11.5-14.5); WBC 11.7 10x3/uL (4.8-10.8)
[2017-10-23 03:31] LABS: ALBUMIN 2.8 g/dL (3.4-5.0); ALKALINE PHOSPHATASE 75 U/L (46-116); ALT (SGPT) 27 U/L (10-68); CALC OSMOLALITY 280 mosm/kg (275-300); CALCIUM 9.2 mg/dL (8.5-10.1); CARBON DIOXIDE 32.2 mmol/L (21.0-32.0); CHLORIDE - SERUM 104 mmol/L (98-107); CREATININE - SERUM 0.6 mg/dL (0.6-1.3); GLUCOSE 104 mg/dL (74-106); POTASSIUM - SERUM 3.5 mmol/L (3.5-5.1); PROTEIN - SERUM 6.7 g/dL (6.4-8.2); SODIUM 142 mmol/L (136-145); UREA NITROGEN 6 mg/dL (7-18); eGFR NON AFRICAN AMERICAN > 90 mL/min (90-120)
[2017-10-23 03:40] LABS: PLATELET COUNT 340 10x3/uL (130-400)
[2017-10-23 05:17] VITALS: BP 126/86
[2017-10-23 08:14] VITALS: BP 153/96
[2017-10-23] MEDS ORDERED: FLAGYL500 MG PO (11:24)
[2017-10-23] MEDS ORDERED: FLORAJEN3 CAPS460 MG PO (11:24)
[2017-10-23] MEDS ORDERED: PREDNISONE10 MG PO (11:25)
[2017-10-23] MEDS ORDERED: DIFLUCAN150 MG PO (11:27)
[2017-10-23] MEDS ORDERED: ELIQUIS5 MG PO (11:27)
== END 2017-10-23 14:04 | disposition home or self-care (01) | DRG 176 ==
LOC: D.ER 19:27 → D.CVICU 21:31 → D.EDHOLD 21:31 → D.CVICU 10-19 17:16 → D.MS 10-21 18:17
PROVIDERS: Emergency Medicine; Family Medicine; Internal Medicine Hematology & Oncology; Physician Assistant Medical
DX: I26.99 Other pulmonary embolism without acute cor pulmonale (principal); Z68.41 Body mass index [BMI] 40.0-44.9, adult; F17.203 Nicotine dependence unspecified, with withdrawal; K51.90 Ulcerative colitis, unspecified, without complications; A09 Infectious gastroenteritis and colitis, unspecified; J44.9 Chronic obstructive pulmonary disease, unspecified; I10 Essential (primary) hypertension; E66.9 Obesity, unspecified; E11.9 Type 2 diabetes mellitus without complications; F20.9 Schizophrenia, unspecified

== ENCOUNTER → 2018-02-13 07:43 | Outpatient (CLI) | payer MEDICARE ==
[2017-10-21 09:57] VITALS: BMI 38.9
[~2018-02-13 07:43] MED LIST changes: +DIFLUCAN150 MG PO; +ELIQUIS5 MG PO; +FLORAJEN3 CAPS460 MG PO
== END | disposition home or self-care (01) ==
LOC: D.US 07:30
DX: I10 Essential (primary) hypertension (principal); R60.9 Edema, unspecified; Z68.36 Body mass index [BMI] 36.0-36.9, adult

== ENCOUNTER 2018-04-15 16:51 | Emergency (ER) | payer MEDICARE ==
[~2018-04-15] VITALS: Ht 157.5 cm; Wt 89.1 kg
[2018-04-15 17:27] VITALS: Ht 157.5 cm; Wt 89.1 kg
[2018-04-15] MEDS ORDERED: METOPROLOL TART25 MG (17:29)
[2018-04-15] MEDS ORDERED: CATAPRES0.1 MG (17:29)
[2018-04-15 17:49] LABS: BASOPHILS 0.2 % (0-2); EOSINOPHILS 0.9 % (0-7); HEMATOCRIT 39.4 % (36.0-48.0); HEMOGLOBIN 13.3 g/dL (12-16); IMMATURE GRANULOCYTES 0.2 % (0-5); MCH 27.3 pg (26.0-34.0); MCHC 33.8 g/dL (31.0-37.0); MCV 80.9 fL (80.0-100.0); MEAN PLATELET VOLUME 10.7 fL (7.4-10.4); MONOCYTES 7.5 % (2-11); NEUTROPHILS 40.2 % (40-80); RBC 4.87 10x6/uL (4.00-5.40); RDW 14.5 % (11.5-14.5); WBC 5.7 10x3/uL (4.8-10.8)
[2018-04-15 17:50] LABS: PLATELET COUNT 217 10x3/uL (130-400)
[2018-04-15 18:03] LABS: ALBUMIN 3.5 g/dL (3.4-5.0); ALKALINE PHOSPHATASE 67 U/L (46-116); ALT (SGPT) 17 U/L (10-68); BILIRUBIN - TOTAL 0.13 mg/dL (0.2-1.3); CALC OSMOLALITY 284 mosm/kg (275-300); CALCIUM 8.9 mg/dL (8.5-10.1); CARBON DIOXIDE 33.6 mmol/L (21.0-32.0); CHLORIDE - SERUM 104 mmol/L (98-107); CREATININE - SERUM 0.7 mg/dL (0.6-1.3); GLUCOSE 102 mg/dL (74-106); POTASSIUM - SERUM 3.6 mmol/L (3.5-5.1); PROTEIN - SERUM 7.3 g/dL (6.4-8.2); SODIUM 144 mmol/L (136-145); UREA NITROGEN 8 mg/dL (7-18); eGFR NON AFRICAN AMERICAN > 90 mL/min (90-120)
[2018-04-15] MEDS ORDERED: HYDRALAZINE HCL10 MG PO (19:01)
[2018-04-15 19:54] LABS: COLOR YELLOW (YELLOW)
[2018-04-15 19:55] LABS: APPEARANCE CLEAR (CLEAR); BILIRUBIN NEGATIVE (NEGATIVE); GLUCOSE NEGATIVE (NEGATIVE); KETONE NEGATIVE (NEGATIVE); NITRITE NEGATIVE (NEGATIVE); PROTEIN NEGATIVE (NEGATIVE); UROBILINOGEN NORMAL (NORMAL)
[2018-04-15 22:11] VITALS: BP 160/97
== END 2018-04-15 22:10 | disposition home or self-care (01) ==
LOC: D.ER 16:51
PROVIDERS: Family Medicine
DX: I10 Essential (primary) hypertension (principal); E11.9 Type 2 diabetes mellitus without complications; J44.9 Chronic obstructive pulmonary disease, unspecified; K21.9 Gastro-esophageal reflux disease without esophagitis; F17.200 Nicotine dependence, unspecified, uncomplicated

== ENCOUNTER 2018-12-11 08:00 | Outpatient (CLI) | payer OTHER ==
[2018-04-15 17:27] VITALS: BMI 35.9
[~2018-12-11 08:00] MED LIST changes: +CATAPRES0.1 MG; +HYDRALAZINE HCL10 MG PO; +METOPROLOL TART25 MG
== END 2018-12-11 23:59 | disposition home or self-care (01) ==
LOC: D.MAMMO 08:00
PROVIDERS: ATTEND Family Medicine Adult Medicine
DX: Z12.31 Encounter for screening mammogram for malignant neoplasm of breast (principal)

== ENCOUNTER 2019-02-11 18:41 | Inpatient (IN) | payer OTHER ==
[~2019-02-11] VITALS: Ht 157.5 cm; Wt 84.4 kg
[2019-02-11] MEDS ORDERED: OMEPRAZOLE40 MG PO (19:03)
[2019-02-11] MEDS ORDERED: NORVASC10 MG PO (19:03)
[2019-02-11] MEDS ORDERED: LOTENSIN20 MG PO (19:04)
[2019-02-11] MEDS ORDERED: LOXAPINE25 MG PO (19:04)
[2019-02-11] MEDS ORDERED: BUPROPION XL300 MG PO (19:04)
[2019-02-11] MEDS ORDERED: BENZTROPINE MESY1 MG PO (19:05)
[2019-02-11 19:57] LABS: BASOPHILS 0.1 % (0-2); EOSINOPHILS 0.4 % (0-7); HEMOGLOBIN 14.6 g/dL (12-16); IMMATURE GRANULOCYTES 0.4 % (0-5); LYMPHOCYTES 18.3 % (15-50); MCH 27.7 pg (26.0-34.0); MCHC 34.8 g/dL (31.0-37.0); MCV 79.5 fL (80.0-100.0); MEAN PLATELET VOLUME 11.3 fL (7.4-10.4); MONOCYTES 10.8 % (2-11); RBC 5.28 10x6/uL (4.00-5.40); RDW 15.3 % (11.5-14.5); WBC 11.8 10x3/uL (4.8-10.8)
[2019-02-11 19:59] LABS: PLATELET COUNT 153 10x3/uL (130-400)
--- NOTE | 2019-02-11 20:00 | NUR ---
UP TO BSC- ATTEMPTING TO GIVE U/A. FAMILY AT BEDSIDE. CALL BUTTON WITHIN REACH.
[2019-02-11 20:16] LABS: ALBUMIN 3.7 g/dL (3.4-5.0); ALKALINE PHOSPHATASE 617 U/L (46-116); ALT (SGPT) 503 U/L (10-68); BILIRUBIN - TOTAL 4.58 mg/dL (0.2-1.3); CALC OSMOLALITY 272 mosm/kg (275-300); CALCIUM 9.3 mg/dL (8.5-10.1); CARBON DIOXIDE 29.2 mmol/L (21.0-32.0); CHLORIDE - SERUM 101 mmol/L (98-107); CREATININE - SERUM 0.9 mg/dL (0.6-1.3); GLUCOSE 90 mg/dL (74-106); POTASSIUM - SERUM 5.6 mmol/L (3.5-5.1); PROTEIN - SERUM 7.8 g/dL (6.4-8.2); SODIUM 137 mmol/L (136-145); UREA NITROGEN 11 mg/dL (7-18); eGFR NON AFRICAN AMERICAN 69 mL/min (90-120)
[2019-02-11 20:26] LABS: AMYLASE - SERUM 1877 U/L (25-115); LIPASE 13974 U/L (73-393); TROPONIN-I < 0.017 ng/mL (0.000-0.060)
[2019-02-11 21:20] LABS: APPEARANCE CLEAR (CLEAR); BILIRUBIN 1+ (NEGATIVE); COLOR DK YELLOW (YELLOW); GLUCOSE NEGATIVE (NEGATIVE); KETONE NEGATIVE (NEGATIVE); NITRITE NEGATIVE (NEGATIVE); PROTEIN TRACE mg/dL (NEGATIVE); SPECIFIC GRAVITY 1.005 (1.005-1.020); UROBILINOGEN NORMAL (NORMAL)
--- NOTE | 2019-02-11 21:30 | NUR ---
BACK FROM CT. MEDICATION GIVEN. UP TO BSC. VOIDS WITHOUT DIFFICULTY.
[2019-02-11 21:37] VITALS: BP 156/90
[2019-02-11 22:01] VITALS: BP 146/90
--- NOTE | 2019-02-11 22:02 | NUR ---
BACK UP TO BSC. VOIDED WITHOUT DIFFICULTY. PT STATES THE PAIN MEDS EARLIER HELPED QUITE A BIT. V/S STABLE. BACK TO BED. WILL MONITOR.
--- NOTE | 2019-02-11 22:34 | NUR ---
REPORT TO ALMA ROSA ON MED SURG.
[2019-02-11 23:28] VITALS: BP 139/78; BMI 34.1
[2019-02-12] VITALS: BP 139/78
[2019-02-12 04:00] VITALS: BP 127/66
[2019-02-12 06:22] LABS: BASOPHILS 0 % (0-2); EOSINOPHILS 0.3 % (0-7); HEMATOCRIT 38.1 % (36.0-48.0); HEMOGLOBIN 12.9 g/dL (12-16); IMMATURE GRANULOCYTES 0.1 % (0-5); LYMPHOCYTES 34.5 % (15-50); MCH 27.2 pg (26.0-34.0); MCHC 33.9 g/dL (31.0-37.0); MCV 80.4 fL (80.0-100.0); MEAN PLATELET VOLUME 10.5 fL (7.4-10.4); MONOCYTES 10.3 % (2-11); NEUTROPHILS 54.8 % (40-80); RBC 4.74 10x6/uL (4.00-5.40); RDW 15.4 % (11.5-14.5)
[2019-02-12 06:26] LABS: PLATELET COUNT 197 10x3/uL (130-400); WBC 7.5 10x3/uL (4.8-10.8)
[2019-02-12 06:38] LABS: ALBUMIN 3.3 g/dL (3.4-5.0); ALKALINE PHOSPHATASE 550 U/L (46-116); ALT (SGPT) 420 U/L (10-68); BILIRUBIN - TOTAL 3.37 mg/dL (0.2-1.3); CALC OSMOLALITY 284 mosm/kg (275-300); CARBON DIOXIDE 28.8 mmol/L (21.0-32.0); CHLORIDE - SERUM 106 mmol/L (98-107); CREATININE - SERUM 0.8 mg/dL (0.6-1.3); GLUCOSE 84 mg/dL (74-106); MAGNESIUM - SERUM 2.3 mg/dL (1.8-2.4); PHOSPHOROUS 4.4 mg/dL (2.5-4.9); PROTEIN - SERUM 6.8 g/dL (6.4-8.2); SODIUM 144 mmol/L (136-145); UREA NITROGEN 11 mg/dL (7-18); eGFR NON AFRICAN AMERICAN 79 mL/min (90-120)
[2019-02-12 06:40] LABS: POTASSIUM - SERUM 3.4 mmol/L (3.5-5.1)
[2019-02-12 07:59] LABS: LIPASE 4430 U/L (73-393)
[2019-02-12 08:00] LABS: AMYLASE - SERUM 591 U/L (25-115)
[2019-02-12 08:04] VITALS: BMI 34.0
--- NOTE | 2019-02-12 08:45 | NUR ---
PATIENT IN BED WITH IV INTACT. NO COMPLAINTS OR SIGNS OF DISTRESS. CALL [facility] WITHIN REACH.
[2019-02-12 08:46] VITALS: BP 114/76
[2019-02-12 13:03] VITALS: BP 114/80
[2019-02-12 14:11] VITALS: Ht 157.5 cm; Wt 84.4 kg
--- NOTE | 2019-02-12 15:08 | NUR ---
CONSENTS SIGNED FOR SURGERY. LEVAQUIN AND LR STARTED. IV INTACT. CALL LIGHT WITHIN REACH.
--- NOTE | 2019-02-12 15:12 | NUR ---
PATIENT RECIEVED PREOP MEDS.
[2019-02-12 15:20] LABS: APTT 31.2 SECONDS (22.8-39.4); INR 1.09 (0.85-1.17); PROTIME 13.6 SECONDS (11.6-15.0)
[2019-02-12 17:41] VITALS: BP 122/85
--- NOTE | 2019-02-12 18:08 | NUR ---
PATIENT TOLERATED FULL LIQUID DIET. NO N/V. OR TOMORROW. SURGERY CANCELED FOR TONIGHT. EXPLAINED NPO AFTER MIDNIGHT TO PATIENT. VERBALIZED UNDERSTANDING. IV INTACT. FAMILY AT BEDSIDE. CALL LIGHT WITHIN REACH.
[2019-02-12 21:17] VITALS: BP 123/70
[2019-02-13 00:17] VITALS: BP 148/74
--- NOTE | 2019-02-13 01:21 | NUR ---
PT RESTING IN BED. EYES CLOSED. NO SIGNS OF DISTRESS. BREATHING EVEN AND UNLABORED. IV SITE LT WRIST DRESSING CLEAN DRY AND INTACT. NO SIGNS OF INFECTION. TELE MONITOR ON 71 SINUS. SKIN CLEAN DRY AND INTACT. WILL CONTINUE PLAN OF CARE. CALL LIGHT IN REACH. BED LOWERED AND LOCKED. BED RAILS UP X1.
--- NOTE | 2019-02-13 02:50 | NUR ---
I have reviewed this patient and I concur with the Shift Assessment completed by the Licensed Practical Nurse today this shift.
[2019-02-13 04:42] VITALS: BP 133/78
[2019-02-13 07:06] LABS: ALBUMIN 3.2 g/dL (3.4-5.0); ALKALINE PHOSPHATASE 486 U/L (46-116); BILIRUBIN - TOTAL 1.17 mg/dL (0.2-1.3); CALC OSMOLALITY 285 mosm/kg (275-300); CALCIUM 8.7 mg/dL (8.5-10.1); CARBON DIOXIDE 27.4 mmol/L (21.0-32.0); CHLORIDE - SERUM 106 mmol/L (98-107); CREATININE - SERUM 0.7 mg/dL (0.6-1.3); GLUCOSE 91 mg/dL (74-106); LIPASE 372 U/L (73-393); POTASSIUM - SERUM 3.8 mmol/L (3.5-5.1); PROTEIN - SERUM 6.5 g/dL (6.4-8.2); SODIUM 144 mmol/L (136-145); UREA NITROGEN 9 mg/dL (7-18); eGFR NON AFRICAN AMERICAN > 90 mL/min (90-120)
[2019-02-13 07:07] LABS: ALT (SGPT) 310 U/L (10-68); AMYLASE - SERUM 94 U/L (25-115)
[2019-02-13 08:06] VITALS: BP 142/83
--- NOTE | 2019-02-13 08:42 | NUR ---
PT ALERT X 4. BREATH SOUNDS CLEAR BILAT. TELEMETRY IN PLACE. IV TO LEFT WRIST, PATENT, DRESSING CDI. PT REPORTING NO PAIN AT THIS TIME. SCD'S IN USE. BED LOW, CALL LIGHT IN REACH. NO OTHER NEEDS AT THIS TIME.
[2019-02-13 08:45] LABS: HEMOGLOBIN 12.5 g/dL (12-16); MCH 27.2 pg (26.0-34.0); MCHC 33.8 g/dL (31.0-37.0); MCV 80.4 fL (80.0-100.0); MEAN PLATELET VOLUME 10.8 fL (7.4-10.4); PLATELET COUNT 190 10x3/uL (130-400); RDW 15.3 % (11.5-14.5); WBC 6.3 10x3/uL (4.8-10.8)
--- NOTE | 2019-02-13 10:59 | NUR ---
IV TO LEFT WRIST LEAKING. DC'D TIP INTACT. IV STARTED TO RIGHT WRIST, 1 ATTEMPT, PT TOLERATED WELL, 20 G.
[2019-02-13 11:00] LABS: EOSINOPHILS 3 % (0-7); LYMPHOCYTES 56 % (15-50); MONOCYTES 11 % (2-11); NEUTROPHILS 29 % (40-80); PLATELET ESTIMATE NORMAL
[2019-02-13 11:57] LABS: UDS - AMPHET NEGATIVE QUAL (NEGATIVE); UDS - BARB NEGATIVE QUAL (NEGATIVE); UDS - BENZO NEGATIVE QUAL (NEGATIVE); UDS - COCAINE NEGATIVE QUAL (NEGATIVE); UDS - OPIATE POSITIVE QUAL (NEGATIVE); UDS - PCP NEGATIVE QUAL (NEGATIVE); UDS - THC NEGATIVE QUAL (NEGATIVE)
[2019-02-13 14:15] VITALS: BP 149/85
[2019-02-13 15:47] VITALS: BP 154/78
--- NOTE | 2019-02-13 21:09 | NUR ---
PT AWAKENING, OPA REMOVED
--- NOTE | 2019-02-13 23:44 | NUR ---
IN SURGERY ON CHGE OF SHIFT.WALKING ROUNDS FAMILY MEMBERS IN [place] AT BEDSIDE.
[2019-02-14 00:49] VITALS: BP 138/86
--- NOTE | 2019-02-14 04:57 | NUR ---
I have reviewed this patient and I concur with the Shift Assessment completed by the Licensed Practical Nurse today this shift.
[2019-02-14 05:16] VITALS: BP 136/76
[2019-02-14 07:12] LABS: BASOPHILS 0.1 % (0-2); EOSINOPHILS 0 % (0-7); HEMATOCRIT 35.3 % (36.0-48.0); HEMOGLOBIN 11.6 g/dL (12-16); IMMATURE GRANULOCYTES 0.1 % (0-5); LYMPHOCYTES 22.3 % (15-50); MCH 26.8 pg (26.0-34.0); MCHC 32.9 g/dL (31.0-37.0); MCV 81.5 fL (80.0-100.0); MEAN PLATELET VOLUME 9.9 fL (7.4-10.4); MONOCYTES 7.5 % (2-11); PLATELET COUNT 156 10x3/uL (130-400); RBC 4.33 10x6/uL (4.00-5.40); RDW 15.5 % (11.5-14.5)
[2019-02-14 07:15] LABS: WBC 9.2 10x3/uL (4.8-10.8)
[2019-02-14 07:28] LABS: ALBUMIN 3.1 g/dL (3.4-5.0); ALKALINE PHOSPHATASE 400 U/L (46-116); ALT (SGPT) 265 U/L (10-68); AMYLASE - SERUM 41 U/L (25-115); BILIRUBIN - TOTAL 0.91 mg/dL (0.2-1.3); CALC OSMOLALITY 276 mosm/kg (275-300); CALCIUM 8.6 mg/dL (8.5-10.1); CHLORIDE - SERUM 102 mmol/L (98-107); CREATININE - SERUM 0.7 mg/dL (0.6-1.3); GLUCOSE 112 mg/dL (74-106); LIPASE 99 U/L (73-393); POTASSIUM - SERUM 3.7 mmol/L (3.5-5.1); PROTEIN - SERUM 6.7 g/dL (6.4-8.2); SODIUM 140 mmol/L (136-145); UREA NITROGEN 5 mg/dL (7-18); eGFR NON AFRICAN AMERICAN > 90 mL/min (90-120)
[2019-02-14] MEDS ORDERED: HYDROCODON-ACE1 EAC7 PO (08:09)
--- NOTE | 2019-02-14 08:09 | NUR ---
PT RESTING IN BED WITH EYES CLOSED. PT OPENS EYES STAFF ENTERS ROOM. NO ACUTE DISTRESS NOTED AT THIS TIME. O2 @ 2L NC IN PLACE. REPORTS PAIN 8/10 AT THIS TIME. PAIN MEDICATION TO BE ADMINISTERED PER ORDERS. IV TO RIGHT FOREARM WITH NS @ 100ML/HR INFUSING VIA PUMP. SITE WITHOUT REDNESS OR EDEMA. LAP SITES X 4 TO ABDOMEN. NO DRAINAGE, NO REDNESS TO SITES. DENIES FURTHER NEEDS AT THIS TIME. CL WITHIN REACH. ENCOURAGED TO CALL WITH NEEDS. CONTINUE POC
[2019-02-14 08:16] VITALS: BP 100/68; BP 118/67
[2019-02-14 12:34] VITALS: BP 137/86
--- NOTE | 2019-02-14 13:32 | MORECARE ---
CASE MANAGEMENT DISCHARGE SUMMARY PATIENT: AISLINN MATHUR UNIT: [id number] ADM DATE: 02/11/19 AGE: 53 : 65 SEX: F ROOM/BED: D.2207 AUTHOR: MAHOGANYDOC PHYSICIAN: REFERRING PHYSICIAN: KHALIDA GONZALEZ MD DATE OF SERVICE: 02/14/19 Discharge Plan Patient Name: AISLINN MATHUR Facility: [facility]:[place] : 1965 Planned Disposition: Home or Self Care Anticipated Discharge Date: Discharge Date: Expected LOS: Initial Reviewer: [email or web address] Initial Review Date: 02/11/2019 Generated: 02/14/19 2:32 pm Comments DCP- Discharge Planning Updated by [email or web address]: Sadia Kim on 02/14/19 12:[address] Patient Name: AISLINN MATHUR Admission Status: ER Accout number: [id number] Admission Date: 02-11-2019 : 1965 Admission Diagnosis: Attending: LISA, Current LOS: 3 Anticipated DC Date: Planned Disposition: Home or Self Care Primary Insurance: [employer] Discharge Planning Comments: CM met with patient to complete initial dc planning assessment. CM educated patient on the CM role and verbal consent given by patient to complete assessment. Patient lives at home with her mother where she is independent with her care. At discharge patient plans to return home and feels this is a safe discharge. Her mother will be her airport driver home. CM discussed availability of home health, rehab services, and medical equipment. She has a walker, yashira eO2 ([employer]) and nebulizer at home. [facility] served and explained Patient denied known discharge needs at this time. CM will continue to follow and will assist as needed with dc plans/needs. Virtual Office Assistant: Sadia Kim Coverage Notice Reviewer: [email or web address] Kelli Kim Notice Issued Date-Time: 02/14/2019 8:15 Notice Type: Patient Choice Letter Notice Delivered To: Patient Relationship to Patient: Technical Support Coordinator Name: Delivery Method: - Lalita Days: Prior Verbal Notification: Recipient Understood Notice: Yes Recipient Signature: Yes Med Rec Note Co-signed by Attending: Coverage Notice Comment: oliver julius Reviewer: [email or web address] Kelli Kim Notice Issued Date-Time: 02/14/2019 8:15 Notice Type: IM Discharge Notice Notice Delivered To: Patient Relationship to Patient: Technical Support Coordinator Name: Delivery Method: HAND - Hand Delivered Lalita Days: Prior Verbal Notification: Recipient Understood Notice: Yes Recipient Signature: Yes Med Rec Note Co-signed by Attending: Coverage Notice Comment: Patient Name: AISLINN MATHUR Page [phone] at 1332 All edits/amendments must be made on the electronic document DICTATION DATE: 02/14/19 1332 DEAN OF MEN: TRAVIS 02/14/19 1332 RPT#: [id number] DC DATE: STATUS: ADM IN [facility] [address] [place] [address] END OF REPORT
--- NOTE | 2019-02-17 12:07 | MORECARE ---
CASE MANAGEMENT DISCHARGE SUMMARY PATIENT: AISLINN MATHUR UNIT: [id number] ADM DATE: 02/11/19 AGE: 53 : 65 SEX: F ROOM/BED: D.2207 AUTHOR: ALEXANDREA VIDES PHYSICIAN: REFERRING PHYSICIAN: KHALIDA GONZALEZ MD DATE OF SERVICE: 02/17/19 Discharge Plan Patient Name: AISLINN MATHUR Facility: [facility]:[place] : 1965 Planned Disposition: Home or Self Care Anticipated Discharge Date: Discharge Date: 02/14/2019 Expected LOS: Initial Reviewer: [email or web address] Initial Review Date: 02/11/2019 Generated: 02/17/19 1:07 pm Comments DCP- Discharge Planning Updated by [email or web address]: Sadia Kim on 02/14/19 12:[address] Patient Name: AISLINN MATHUR Admission Status: ER Accout number: [id number] Admission Date: 02-11-2019 : 1965 Admission Diagnosis: Attending: LISA, Current LOS: 3 Anticipated DC Date: Planned Disposition: Home or Self Care Primary Insurance: [employer] Discharge Planning Comments: CM met with patient to complete initial dc planning assessment. CM educated patient on the CM role and verbal consent given by patient to complete assessment. Patient lives at home with her mother where she is independent with her care. At discharge patient plans to return home and feels this is a safe discharge. Her mother will be her day haul or farm charter bus driver home. CM discussed availability of home health, rehab services, and medical equipment. She has a walker, yashira eO2 ([employer]) and nebulizer at home. [facility] served and explained Patient denied known discharge needs at this time. CM will continue to follow and will assist as needed with dc plans/needs. Cutter Wet Machine: Sadia Kim Coverage Notice Reviewer: [id number] Kelli Kim Notice Issued Date-Time: 02/14/2019 8:15 Notice Type: Patient Choice Letter Notice Delivered To: Patient Relationship to Patient: Sales And Marketing Manager Name: Delivery Method: - Lalita Days: Prior Verbal Notification: Recipient Understood Notice: Yes Recipient Signature: Yes Med Rec Note Co-signed by Attending: Coverage Notice Comment: oliver julius Reviewer: [email or web address] Kelli Kim Notice Issued Date-Time: 02/14/2019 8:15 Notice Type: IM Discharge Notice Notice Delivered To: Patient Relationship to Patient: Sales And Marketing Manager Name: Delivery Method: HAND - Hand Delivered Lalita Days: Prior Verbal Notification: Recipient Understood Notice: Yes Recipient Signature: Yes Med Rec Note Co-signed by Attending: Coverage Notice Comment: Last DP export: 02/14/19 12:32 p Patient Name: AISLINN MATHUR Page [phone] at 1207 All edits/amendments must be made on the electronic document DICTATION DATE: 02/17/19 1207 TELEPHONE LINES REPAIRER: TRAVIS 02/17/19 1207 RPT#: [id number] DC DATE:02/14/19 STATUS: DIS IN [facility] [address] [place] [address] END OF REPORT
== END 2019-02-14 15:40 | disposition home or self-care (01) | DRG 418 ==
LOC: D.ER 18:41 → D.MS 22:13
PROVIDERS: Family Medicine; Internal Medicine Nephrology; Surgery; ADMIT Family Medicine; ATTEND Family Medicine
PROC: BF03YZZ Plain Radiography of Gallbladder and Bile Ducts using Other Contrast (ICD-10-PCS; 2019-02-13)
PROC: 0FT44ZZ Resection of Gallbladder, Percutaneous Endoscopic Approach (ICD-10-PCS; principal; 2019-02-13 11:00)
DX: K85.10 Biliary acute pancreatitis without necrosis or infection (principal); F17.203 Nicotine dependence unspecified, with withdrawal; K51.90 Ulcerative colitis, unspecified, without complications; J96.11 Chronic respiratory failure with hypoxia; I10 Essential (primary) hypertension; J44.9 Chronic obstructive pulmonary disease, unspecified; Z99.81 Dependence on supplemental oxygen; K21.9 Gastro-esophageal reflux disease without esophagitis; F31.9 Bipolar disorder, unspecified; F20.9 Schizophrenia, unspecified

== ENCOUNTER 2020-10-21 12:21 | Inpatient (IN) | payer OTHER ==
[~2020-10-21] VITALS: Ht 157.5 cm; Wt 88.9 kg
[~2020-10-21 12:21] MED LIST changes: +BENZTROPINE MESY1 MG PO; +HYDROCODON-ACE1 EAC7 PO; +LOTENSIN20 MG PO; +LOXAPINE25 MG PO; +NORVASC10 MG PO; +OMEPRAZOLE40 MG PO
--- NOTE | 2020-10-21 12:30 | NUR ---
PATIENT PLACED ON O2 AT 2L/M FOR SPO2 OF 87% ON ROOM AIR.
[2020-10-21 13:42] LABS: BASOPHILS 0.2 % (0-2); EOSINOPHILS 0.2 % (0-7); HEMOGLOBIN 13.6 g/dL (12-16); IMMATURE GRANULOCYTES 0.6 % (0-5); LYMPHOCYTE ABS# 2.53 10x3/uL (1.18-3.74); LYMPHOCYTES 20.5 % (15-50); MCH 27.5 pg (26.0-34.0); MCHC 33.2 g/dL (31.0-37.0); MEAN PLATELET VOLUME 10.9 fL (7.4-10.4); MONOCYTES 9.3 % (2-11); NEUTROPHIL ABS# 8.54 10x3/uL (1.56-6.13); NEUTROPHILS 69.2 % (40-80); PLATELET COUNT 261 10x3/uL (130-400); RBC 4.94 10x6/uL (4.00-5.40); WBC 12.3 10x3/uL (4.8-10.8)
[2020-10-21 13:47] LABS: CALC OSMOLALITY 281 mosm/kg (275-300); CALCIUM 9.2 mg/dL (8.5-10.1); CARBON DIOXIDE 31.7 mmol/L (21.0-32.0); CHLORIDE - SERUM 99 mmol/L (98-107); CREATININE - SERUM 0.6 mg/dL (0.6-1.3); GLUCOSE 97 mg/dL (74-106); POTASSIUM - SERUM 3.1 mmol/L (3.5-5.1); SODIUM 142 mmol/L (136-145); UREA NITROGEN 10 mg/dL (7-18); eGFR NON AFRICAN AMERICAN > 90 mL/min (90-120)
[2020-10-21 13:59] LABS: ALBUMIN 3.2 g/dL (3.4-5.0); ALKALINE PHOSPHATASE 75 U/L (30-120); ALT (SGPT) 24 U/L (10-68); BILIRUBIN - TOTAL 0.27 mg/dL (0.2-1.3); PRO BNP 120 pg/mL (0-125); PROTEIN - SERUM 7.5 g/dL (6.4-8.2)
--- NOTE | 2020-10-21 14:00 | NUR ---
TRIAL OFF O2. SPO2 DECREASED TO 84-85%. O2 RESUMED AT 2L/M. DR. AJ DE LA CRUZ.
--- NOTE | 2020-10-21 17:58 | NUR ---
RECEIVED REPORT FROM PADMINI IN ER. PATIENT HAS IV IN RT HAND. PATIENT ON 2L SATURATION AT 94-95% NOW. AWAITING PATIENT ARRIVAL.
[2020-10-21 18:27] LABS: CREATINE KINASE 134 UL (21-215)
[2020-10-21 18:33] LABS: TROPONIN-I 0.017 ng/mL (0.000-0.060)
[2020-10-21 20:00] VITALS: BP 180/104
[2020-10-21 23:53] LABS: INFLUENZA TYPE A NEGATIVE (NEGATIVE); INFLUENZA TYPE B NEGATIVE (NEGATIVE)
[2020-10-22 00:19] LABS: CKMB 1.4 U/L (0.0-3.6); CREATINE KINASE 115 UL (21-215)
[2020-10-22 00:22] LABS: TROPONIN-I < 0.017 ng/mL (0.000-0.060)
[2020-10-22 00:48] VITALS: BP 180/104; BMI 35.9
[2020-10-22 04:00] VITALS: BP 170/108
--- NOTE | 2020-10-22 06:04 | NUR ---
I have reviewed this patient and I concur with the Shift Assessment completed by the Licensed Practical Nurse today this shift.
[2020-10-22 06:39] LABS: BASOPHILS 0.1 % (0-2); EOSINOPHILS 0 % (0-7); HEMATOCRIT 40.7 % (36.0-48.0); HEMOGLOBIN 13.1 g/dL (12-16); IMMATURE GRANULOCYTES 0.8 % (0-5); LYMPHOCYTE ABS# 1.65 10x3/uL (1.18-3.74); LYMPHOCYTES 12.7 % (15-50); MCHC 32.2 g/dL (31.0-37.0); MCV 83.9 fL (80.0-100.0); MEAN PLATELET VOLUME 11.1 fL (7.4-10.4); MONOCYTES 3.8 % (2-11); NEUTROPHIL ABS# 10.77 10x3/uL (1.56-6.13); NEUTROPHILS 82.6 % (40-80); PLATELET COUNT 311 10x3/uL (130-400); RBC 4.85 10x6/uL (4.00-5.40)
[2020-10-22 07:16] LABS: ALKALINE PHOSPHATASE 73 U/L (30-120); ALT (SGPT) 23 U/L (10-68); BILIRUBIN - TOTAL 0.17 mg/dL (0.2-1.3); CALC OSMOLALITY 283 mosm/kg (275-300); CALCIUM 9.4 mg/dL (8.5-10.1); CARBON DIOXIDE 33.2 mmol/L (21.0-32.0); CHLORIDE - SERUM 98 mmol/L (98-107); CKMB 1.5 U/L (0.0-3.6); CREATINE KINASE 109 UL (21-215); CREATININE - SERUM 0.5 mg/dL (0.6-1.3); GLUCOSE 126 mg/dL (74-106); MAGNESIUM - SERUM 2.5 mg/dL (1.8-2.4); POTASSIUM - SERUM 3.4 mmol/L (3.5-5.1); PROTEIN - SERUM 7.7 g/dL (6.4-8.2); SODIUM 141 mmol/L (136-145); TROPONIN-I < 0.017 ng/mL (0.000-0.060); UREA NITROGEN 15 mg/dL (7-18); eGFR NON AFRICAN AMERICAN > 90 mL/min (90-120)
--- NOTE | 2020-10-22 07:44 | NUR ---
RECIEVED BEDSIDE REPORT. AROUSES TO VOICE. BED LOW POSITION, CALL LIGHT IN REACH. WILL CONTINUE TO MONITOR.
[2020-10-22 08:28] VITALS: BP 157/83
[2020-10-22 12:54] VITALS: BP 180/95
[2020-10-22 16:23] VITALS: BP 165/91
[2020-10-22 20:00] VITALS: BP 152/83
[2020-10-23] VITALS: BP 168/99
[2020-10-23 04:00] VITALS: BP 176/98; BP 86/40
[2020-10-23 04:40] LABS: BILIRUBIN NEGATIVE (NEGATIVE); KETONE NEGATIVE (NEGATIVE); NITRITE NEGATIVE (NEGATIVE); UROBILINOGEN NORMAL mg/dL (< 2)
[2020-10-23 04:47] LABS: UDS - AMPHET NEGATIVE QUAL (NEGATIVE); UDS - BARB NEGATIVE QUAL (NEGATIVE); UDS - BENZO NEGATIVE QUAL (NEGATIVE); UDS - COCAINE NEGATIVE QUAL (NEGATIVE); UDS - OPIATE NEGATIVE QUAL (NEGATIVE); UDS - PCP NEGATIVE QUAL (NEGATIVE); UDS - THC NEGATIVE QUAL (NEGATIVE)
[2020-10-23 06:26] LABS: BASOPHILS 0.1 % (0-2); EOSINOPHILS 0 % (0-7); HEMATOCRIT 42.3 % (36.0-48.0); HEMOGLOBIN 13.4 g/dL (12-16); LYMPHOCYTE ABS# 1.64 10x3/uL (1.18-3.74); LYMPHOCYTES 13.5 % (15-50); MCHC 31.7 g/dL (31.0-37.0); MCV 85.1 fL (80.0-100.0); MEAN PLATELET VOLUME 10.8 fL (7.4-10.4); MONOCYTES 4.6 % (2-11); NEUTROPHIL ABS# 9.86 10x3/uL (1.56-6.13); NEUTROPHILS 80.8 % (40-80); PLATELET COUNT 304 10x3/uL (130-400); RBC 4.97 10x6/uL (4.00-5.40); RDW 14.2 % (11.5-14.5); WBC 12.2 10x3/uL (4.8-10.8)
[2020-10-23 06:42] LABS: ALKALINE PHOSPHATASE 76 U/L (30-120); ALT (SGPT) 21 U/L (10-68); BILIRUBIN - TOTAL 0.16 mg/dL (0.2-1.3); CALC OSMOLALITY 287 mosm/kg (275-300); CALCIUM 9.3 mg/dL (8.5-10.1); CARBON DIOXIDE 35.8 mmol/L (21.0-32.0); CHLORIDE - SERUM 102 mmol/L (98-107); CREATININE - SERUM 0.5 mg/dL (0.6-1.3); GLUCOSE 153 mg/dL (74-106); MAGNESIUM - SERUM 2.4 mg/dL (1.8-2.4); POTASSIUM - SERUM 4.3 mmol/L (3.5-5.1); SODIUM 143 mmol/L (136-145); UREA NITROGEN 13 mg/dL (7-18); eGFR NON AFRICAN AMERICAN > 90 mL/min (90-120)
[2020-10-23 09:19] VITALS: BP 167/95
[2020-10-23 12:41] VITALS: Ht 157.5 cm; Wt 88.9 kg
[2020-10-23 12:50] VITALS: BP 155/87
[2020-10-23] MEDS ORDERED: OMNICEF300 MG PO (13:32)
[2020-10-23] MEDS ORDERED: AZITHROMYCIN500 MG PO (13:33)
[2020-10-23] MEDS ORDERED: PREDNISONE10 MG PO (13:34)
--- NOTE | 2020-10-23 15:55 | MORECARE ---
CASE MANAGEMENT DISCHARGE SUMMARY PATIENT: AISLINN MATHUR UNIT: [id number] ADM DATE: 10/21/20 AGE: 55 : 65 SEX: F ROOM/BED: D.[facility]0 AUTHOR: MAHOGANY,DOC PHYSICIAN: REFERRING PHYSICIAN: ELISABETH MATHUR MD DATE OF SERVICE: 10/23/20 Case Management Discharge Planning Summary DCP REVIEW SUMMARY ANTICIPATED D/C DATE: EXPECTED LOS : CASE STATUS: DCP Initiated INITIAL REVIEW: 10/21/2020 INITIAL REVIEWER: Sadia Kim FINAL DISCHARGE DISPOSITION: : FINAL REVIEWER: FINAL REVIEW DATE: DCP Focus Questions & Answers QUESTION: ANSWER : PATIENT: AISLINN MATHUR ENCOUNTER: [id number] MEDICAL RECORD#: [id number] ADMISSION DATE: 10/21/2020 DISCHARGE DATE: ATTENDING MD: ELISABETH ROSENBERG : AGE: 55 MARITAL STATUS: D DC PLAN ID: [id number] FACILITY: [facility] PRINTED ON: 10/23/20 15:55 CT All edits/amendments must be made on the electronic document DICTATION DATE: 10/23/20 1555 TAXI CAB DRIVER: DM 10/23/20 1555 RPT#: [id number] DC DATE: STATUS: ADM IN [facility] [address] [place] [address] END OF REPORT
--- NOTE | 2020-10-23 16:08 | MORECARE ---
CASE MANAGEMENT DISCHARGE SUMMARY PATIENT: AISLINN MATHUR UNIT: [id number] ADM DATE: 10/21/20 AGE: 55 : 65 SEX: F ROOM/BED: D.2230 AUTHOR: MAHOGANY,DOC PHYSICIAN: REFERRING PHYSICIAN: ELISABETH MATHUR MD DATE OF SERVICE: 10/23/20 Case Management Discharge Planning Summary COMMENTS ENTERED DATE: 10/23/20 15:51 CT COMMENT TYPE: Discharge Planning REVIEWER: Sadia Kim CM met with patient to complete initial dc planning assessment. CM educated patient on the CM role and verbal consent given by patient to complete assessment. Patient lives at home by herself where she states she is pretty independent with her care. Her sisters help her at times. Her sister Tere will be her tilt tray driver home today and will bring her portable o2 to the hospital. At discharge patient plans to return home and feels this is a safe discharge. CM discussed availability of home health, rehab services, and medical equipment. She would like home health at discharge. I have sent her referral to [facility] They will be able to accept her on Tuesday. She has a walker, cane and BSC at home. Dr Lovell is her PCP and she uses [facility]. Her Home address is . her phone number is [phone]. MARTHA signed. Patient denied known discharge needs at this time. CM will continue to follow and will assist as needed with dc plans/needs. DCP REVIEW SUMMARY ANTICIPATED D/C DATE: EXPECTED LOS : CASE STATUS: DCP Initiated INITIAL REVIEW: 10/21/2020 INITIAL REVIEWER: Sadia Kim FINAL DISCHARGE DISPOSITION: : FINAL REVIEWER: FINAL REVIEW DATE: DCP Focus Questions & Answers QUESTION: ANSWER : PATIENT: AISLINN MATHUR ENCOUNTER: [id number] MEDICAL RECORD#: [id number] ADMISSION DATE: 10/21/2020 DISCHARGE DATE: ATTENDING MD: ELISABETH ROSENBERG : AGE: 55 MARITAL STATUS: D DC PLAN ID: [id number] FACILITY: [facility] PRINTED ON: 10/23/20 16:07 CT All edits/amendments must be made on the electronic document DICTATION DATE: 10/23/20 2541 COMMERCIAL SALES CONSULTANT: TRAVIS 10/23/20 5421 RPT#: [id number] DC DATE: STATUS: ADM IN [facility] [address] [place] [address] END OF REPORT
--- NOTE | 2020-10-23 18:32 | NUR ---
0700 BEDSIDE REPORT RECEIVED AWAKE ALERT VOICES NO COMPLAINTS ASSESSMENT COOMPLETE
--- NOTE | 2020-10-23 18:33 | NUR ---
0730 DISCHARGE ORDERS WRITTEN
--- NOTE | 2020-10-23 18:33 | NUR ---
1800 WRITTEN AND VERBAL DISCHARGE INSTRUCTIONS GIVEN. PATIENT VERBALIZED UNDERSTANDING LEFT IV D/C FAMILY MEMBER PRESENT TO TAKE PT HOME TRANSPORTED TO CAR VIA WHEELCHAIR TO ER ENTRANCE
--- NOTE | 2020-10-24 14:25 | MORECARE ---
CASE MANAGEMENT DISCHARGE SUMMARY PATIENT: AISLINN MATHUR UNIT: [id number] ADM DATE: 10/21/20 AGE: 55 : 65 SEX: F ROOM/BED: D.2230 AUTHOR: MAHOGANY,DOC PHYSICIAN: REFERRING PHYSICIAN: ELISABETH MATHUR MD DATE OF SERVICE: 10/24/20 Case Management Discharge Planning Summary COMMENTS ENTERED DATE: 10/23/20 15:51 CT COMMENT TYPE: Discharge Planning REVIEWER: Sadia Kim CM met with patient to complete initial dc planning assessment. CM educated patient on the CM role and verbal consent given by patient to complete assessment. Patient lives at home by herself where she states she is pretty independent with her care. Her sisters help her at times. Her sister Tere will be her medical delivery driver home today and will bring her portable o2 to the hospital. At discharge patient plans to return home and feels this is a safe discharge. CM discussed availability of home health, rehab services, and medical equipment. She would like home health at discharge. I have sent her referral to [facility]. They will be able to accept her on Tuesday. She has a walker, cane and BSC at home. Dr Lovell is her PCP and she uses [facility]. Her Home address is . her phone number is [phone]. MARTHA signed. Patient denied known discharge needs at this time. CM will continue to follow and will assist as needed with dc plans/needs. DCP REVIEW SUMMARY ANTICIPATED D/C DATE: EXPECTED LOS : CASE STATUS: DCP Initiated INITIAL REVIEW: 10/21/2020 INITIAL REVIEWER: Sadia Kim FINAL DISCHARGE DISPOSITION: : FINAL REVIEWER: FINAL REVIEW DATE: DCP Focus Questions & Answers QUESTION: ANSWER : PATIENT: AISLINN MATHUR ENCOUNTER: [id number] MEDICAL RECORD#: [id number] ADMISSION DATE: 10/21/2020 DISCHARGE DATE: 10/23/2020 ATTENDING MD: ELISABETH ROSENBERG : AGE: 55 MARITAL STATUS: D DC PLAN ID: [id number] FACILITY: [facility] PRINTED ON: 10/24/20 14:25 CT All edits/amendments must be made on the electronic document DICTATION DATE: 10/24/20 3198 SOFT SUGAR OPERATOR HEAD: TRAVIS 10/24/20 1425 RPT#: [id number] DC DATE:10/23/20 STATUS: DIS IN [facility] [address] [place] [address] END OF REPORT
== END 2020-10-23 18:00 | disposition home health service (06) | DRG 202 ==
LOC: D.ER 12:21 → D.MS 17:18
PROVIDERS: Emergency Medicine; Family Medicine; ADMIT Emergency Medicine; ATTEND Emergency Medicine
DX: J20.9 Acute bronchitis, unspecified (principal); J44.1 Chronic obstructive pulmonary disease with (acute) exacerbation; J96.11 Chronic respiratory failure with hypoxia; J44.0 Chronic obstructive pulmonary disease with (acute) lower respiratory infection; I10 Essential (primary) hypertension; E11.9 Type 2 diabetes mellitus without complications; G89.29 Other chronic pain; K21.9 Gastro-esophageal reflux disease without esophagitis; F25.9 Schizoaffective disorder, unspecified; R05 Cough; Z87.891 Personal history of nicotine dependence; Z86.711 Personal history of pulmonary embolism; Z79.01 Long term (current) use of anticoagulants

== ENCOUNTER 2020-11-13 18:01 | Emergency (ER) | payer OTHER ==
[~2020-11-13] VITALS: Ht 157.5 cm; Wt 82.7 kg
[~2020-11-13 18:01] MED LIST changes: +AZITHROMYCIN500 MG PO; +OMNICEF300 MG PO
[2020-11-13 18:08] VITALS: Ht 157.5 cm; Wt 82.7 kg
[2020-11-13 19:42] LABS: CALC OSMOLALITY 283 mosm/kg (275-300); CARBON DIOXIDE 31.5 mmol/L (21.0-32.0); CHLORIDE - SERUM 105 mmol/L (98-107); CREATININE - SERUM 0.7 mg/dL (0.6-1.3); GLUCOSE 81 mg/dL (74-106); POTASSIUM - SERUM 3.6 mmol/L (3.5-5.1); SODIUM 144 mmol/L (136-145); UREA NITROGEN 6 mg/dL (7-18); eGFR NON AFRICAN AMERICAN > 90 mL/min (90-120)
[2020-11-13 19:44] LABS: HEMATOCRIT 39.8 % (36.0-48.0); HEMOGLOBIN 12.9 g/dL (12-16); MCH 26.9 pg (26.0-34.0); MCHC 32.3 g/dL (31.0-37.0); MCV 83.2 fL (80.0-100.0); MEAN PLATELET VOLUME 8.5 fL (7.4-10.4); RBC 4.79 10x6/uL (4.00-5.40); RDW 14.8 % (11.5-14.5); WBC 5.7 10x3/uL (4.8-10.8)
[2020-11-13 19:46] LABS: PLATELET COUNT 193 10x3/uL (130-400)
[2020-11-13 19:48] LABS: ALBUMIN 3.4 g/dL (3.4-5.0); ALKALINE PHOSPHATASE 61 U/L (30-120); ALT (SGPT) 23 U/L (10-68); BILIRUBIN - TOTAL 0.28 mg/dL (0.2-1.3)
[2020-11-13 20:06] LABS: EOSINOPHILS 3 % (0-7); LYMPHOCYTES 48 % (15-50); MONOCYTES 7 % (2-11); NEUTROPHILS 42 % (40-80); PLATELET ESTIMATE NORMAL
[2020-11-13 20:39] LABS: BILIRUBIN NEGATIVE (NEGATIVE); KETONE NEGATIVE (NEGATIVE); NITRITE NEGATIVE (NEGATIVE); UROBILINOGEN NORMAL mg/dL (< 2)
[2020-11-13 23:06] VITALS: BP 146/87
== END 2020-11-13 21:34 | disposition home or self-care (01) ==
LOC: D.ER 18:01
PROVIDERS: Emergency Medicine
DX: M17.0 Bilateral primary osteoarthritis of knee (principal); M25.561 Pain in right knee; M25.562 Pain in left knee; J44.9 Chronic obstructive pulmonary disease, unspecified; Z99.81 Dependence on supplemental oxygen; Z72.0 Tobacco use

== ENCOUNTER 2020-11-21 19:21 | Emergency (ER) | payer OTHER ==
[~2020-11-21] VITALS: Ht 157.5 cm; Wt 82.7 kg
[2020-11-21 19:23] VITALS: Ht 157.5 cm; Wt 82.7 kg
[2020-11-21] MEDS ORDERED: HYDROCODONE-AC1 EAC2 PO (22:06)
[2020-11-21 23:42] VITALS: BP 149/96
== END 2020-11-21 23:44 | disposition home or self-care (01) ==
LOC: D.ER 19:21
DX: S62.307A Unspecified fracture of fifth metacarpal bone, left hand, initial encounter for closed fracture (principal); M17.0 Bilateral primary osteoarthritis of knee; J44.9 Chronic obstructive pulmonary disease, unspecified; Z99.81 Dependence on supplemental oxygen; Z72.0 Tobacco use; X58.XXXA Exposure to other specified factors, initial encounter